=== PATIENT | female | born 1990 | race Hispanic/Latino ===

== ENCOUNTER 2016-12-01 11:44 | Inpatient (IN) | payer MEDICAID ==
[2016-12-01 11:45] VITALS: BMI 28.3
[2016-12-01] MEDS ORDERED: Albuterol-Ipratrop 3 mg / 0.5 (3 ml) UD INH STA ×3 (12:21→14:54)
--- NOTE | 2016-12-01 12:27 | C.PDOC ---
History Of Present Illness 25 yr olds female presents to the ER requesting detox. Patient reports she uses 100 bags of heroin daily through IV and snorting, also uses 12mg of Xanax. Patient reports history of seizures, is on gabapentin and asthma, states she is always wheezing and is on steroids. 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 Patient denies fever, chest pain, SOB, nausea, vomiting or abdominal pain. Patient reports history of Hepatitis C, did a 12 week course of Harvoni 1 year ago but has not had any follow up since then. Patient states she has been taking IV drugs since. Patient sugar level was found to be 151 and reports history of gestational diabetes. Time Seen by Provider: 12/01/16 11:54 Chief Complaint (Nursing): Substance Abuse History Per: Patient History/Exam Limitations: no limitations Onset/Duration Of Symptoms: Persistent Past Medical History Reviewed: Historical Data, Nursing Documentation, Vital Signs Vital Signs: Last Vital Signs Temp 98.1 F 12/01/16 11:50 Pulse 114 H 12/01/16 14:07 Resp 24 12/01/16 14:07 BP 114/70 12/01/16 14:07 Pulse Ox 91 L 12/01/16 15:48 - Medical History PMH: Anxiety, Asthma, Bipolar Disorder, Depression, Seizures (Pt. 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 Drowsy. ) Skin: Warm, Dry, No Rash Head: Atraumatic, Normacephalic Oral Mucosa: Moist Throat: Normal, No Erythema, No Exudate Neck: Normal, Normal ROM, Supple Chest: Symmetrical, No Tenderness Cardiovascular: Rhythm Regular, Other ((+) Tacy ) Respiratory: No Rales, Wheezing (Bilateral ) Gastrointestinal/Abdominal: Normal Exam, Soft, No Tenderness, No Guarding, No Rebound Extremity: Normal ROM, No Swelling Neurological/Psych: Oriented x3, Normal Speech, Normal Motor ED Course And Treatment - Laboratory Results Result Diagrams: 12/01/16 12:47 12/01/16 12:47 O2 Sat by Pulse Oximetry: 91 (RA ) Pulse Ox Interpretation: Normal - Other Rad CXR X-Ray: Viewed By Me, Read By Radiologist Interpretation: HISTORY: cough asthma o2 sat 91. COMPARISON: None available. TECHNIQUE: Chest PA and lateral. FINDINGS: Examination limited by habitus. LUNGS: No focal consolidation. 8 mm nodular density versus sclerotic focus projecting over the 3rd anterior rib/ 6th posterior rib on the right. Please note that chest x-ray has limited sensitivity for the detection of pulmonary masses. PLEURA: No significant pleural effusion identified. No definite pneumothorax . CARDIOVASCULAR: Heart size appears within normal limits. OSSEOUS STRUCTURES: Degenerative changes of the spine. VISUALIZED UPPER ABDOMEN: Unremarkable. OTHER FINDINGS: None. IMPRESSION: No focal consolidation, significant pleural effusion, or definite pneumothorax identified. 8 mm nodular density versus sclerotic focus projecting over the 3rd anterior rib/ 6th posterior rib on the right. Outpatient CT of the chest may be considered for further characterization if indicated. Medical Decision Making Medical Decision Making: PLAN: * * CXR * CBC * Alcohol Serum * Drug Screen * BETA * Urinalysis * Albuterol INH * Solumedrol IV 350 pm pt still wheezing in spite of nebs and sterpids, with low 02 sat. pt admitted to medicine; discussed with Dr Holliday. Disposition Discussed With .: Diaz Holliday Doctor Will See Patient In The: Hospital - Disposition Disposition: HOSPITALIZED Disposition Time: 15:46 Condition: SERIOUS Forms: [facility] (Slovenian) - Clinical Impression Clinical Impression: Asthma with acute exacerbation, Polysubstance (including opioids) dependence with physiol dependence - PA / GLOVE PRINTER / Resident Statement MD/DO has reviewed & agrees with the documentation as recorded. - Scribe Statement The provider has reviewed the documentation as recorded by the Scribe Debbie Saravia All medical record entries made by the Scribe were at my direction and personally dictated by me. I have reviewed the chart and agree that the record accurately reflects my personal performance of the history, physical exam, medical decision making, and the department course for this patient. I have also personally directed, reviewed, and agree with the discharge instructions and disposition. Decision To Admit - Pt Status Changed To: Hospital Disposition Of: Inpatient - Admit Certification Admit to Inpatient:: After my assessment, the patient will require hospitalization for at least two midnights. This is because of the severity of symptoms shown, intensity of services needed, and/or the medical risk in this patient being treated as an outpatient. - InPatient: Physician Admission Certification: I certify that this patient requires 2 or more midnights of care for the following reason:: asthma exacerbation - . Bed Request Type: Regular Patient Diagnosis: Asthma with acute exacerbation, Polysubstance (including opioids) dependence with physiol dependence
[2016-12-01] MEDS ORDERED: Albuterol-Ipratrop 3 mg / 0.5 (3 ml) UD ONE ×3 (12:52→15:23)
[2016-12-01 12:57] LABS: BASO # 0.1 K/uL (0.0-0.2); BASO % 0.5 % (0.0-2.0); EOS # 0.4 K/uL (0.0-0.7); EOS % 4.1 % (0.0-4.0); HEMOGLOBIN 13.1 g/dL (11.0-16.0); LYMPH # 3.7 K/uL (1.0-4.3); LYMPH % 38.9 % (20.0-40.0); MEAN CELL VOLUME 83.1 fL (81.0-99.0); MEAN CORPUSCULAR HEMOGLOBIN 26.5 pg (27.0-31.0); MEAN CORPUSCULAR HGB CONC 31.9 g/dL (33.0-37.0); MEAN PLATELET VOLUME 8.2 fL (7.2-11.7); MONO # 0.6 K/uL (0.0-0.8); MONO % 6.5 % (0.0-10.0); NEUT # 4.7 K/uL (1.8-7.0); NRBC % 0.1 % (0.0-2.0); RBC 4.93 Mil/uL (3.80-5.20); RED CELL DISTRIBUTION WIDTH 16.2 % (11.5-14.5); WHITE BLOOD COUNT 9.5 K/uL (4.8-10.8)
[2016-12-01 13:23] LABS: ALBUMIN 4.1 g/dL (3.5-5.0)
[2016-12-01 13:26] LABS: ALB/GLOB RATIO 1.1 (1.0-2.1); AST/SGOT 231 U/L (14-36); GFR AFRICAN-AMERICAN > 60; GFR NON-AFRICAN AMERICAN > 60
[2016-12-01 13:27] LABS: ALT/SGPT 196 U/L (9-52); BLOOD UREA NITROGEN 13 mg/dL (7-17); CALCIUM 8.8 mg/dl (8.6-10.4)
--- NOTE | 2016-12-01 14:24 | RAD ---
HISTORY: cough asthma o2 sat 91 COMPARISON: None available TECHNIQUE: Chest PA and lateral FINDINGS: Examination limited by habitus. LUNGS: No focal consolidation. 8 mm nodular density versus sclerotic focus projecting over the 3rd anterior rib/ 6th posterior rib on the right. Please note that chest x-ray has limited sensitivity for the detection of pulmonary masses. PLEURA: No significant pleural effusion identified. No definite pneumothorax . CARDIOVASCULAR: Heart size appears within normal limits. OSSEOUS STRUCTURES: Degenerative changes of the spine. VISUALIZED UPPER ABDOMEN: Unremarkable. OTHER FINDINGS: None. IMPRESSION: No focal consolidation, significant pleural effusion, or definite pneumothorax identified. 8 mm nodular density versus sclerotic focus projecting over the 3rd anterior rib/ 6th posterior rib on the right. Outpatient CT of the chest may be considered for further characterization if indicated.
[2016-12-01 14:37] LABS: HEPATITIS B SURFACE AG NEGATIVE (NEGATIVE)
[2016-12-01 14:42] LABS: HEPATITIS A IGM NEGATIVE (NEGATIVE); HEPATITIS B CORE AB NEGATIVE (NEGATIVE)
[2016-12-01] MEDS ORDERED: Sodium Chloride 0.9% 1,000 ML IV ONE (14:51)
[2016-12-01 16:05] LABS: HEPATITIS C ANTIBODY REACTIVE (NEGATIVE)
[2016-12-01] MEDS: guaiFENesin 600 mg ER Tab PO SCH (17:55)
[2016-12-01 19:09] VITALS: O2SAT 91
[2016-12-01] MEDS ORDERED: Fluticasone-Salmeterol 250-50mcg Diskus IH SCH (20:00)
[2016-12-01 22:24] LABS: SQUAMOUS EPITHIAL < 1 /hpf (0-5); URINE BILIRUBIN NEGATIVE (NEGATIVE); URINE BLOOD NEGATIVE (NEGATIVE); URINE CLARITY Clear (Clear); URINE COLOR Yellow (YELLOW); URINE GLUCOSE (UA) NORMAL (Normal); URINE LEUKOCYTE ESTERASE TRACE Leu/uL (Negative); URINE NITRATE NEGATIVE (NEGATIVE); URINE PROTEIN NEGATIVE (NEGATIVE); URINE UROBILINOGEN NORMAL mg/dL (0.2-1.0)
[2016-12-01 22:28] LABS: BARBITURATES, UR NEGATIVE (NEGATIVE); BENZODIAZEPINES, UR POSITIVE (NEGATIVE)
[2016-12-01 22:31] LABS: HCG,QUALITATIVE URINE NEGATIVE (NEGATIVE); OPIATES, UR POSITIVE (NEGATIVE); PHENCYCLIDINE, UR NEGATIVE (NEGATIVE)
[2016-12-01] MEDS: MethylPREDNISolone 40 mg Vial IV SCH (23:05)
[2016-12-02 00:41] VITALS: BP 145/71; PULSE 118; RESP 20; TEMP 97.9
[2016-12-02] MEDS: Albuterol 0.083% Inhal Sol (2.5 mg/3 mL) UD INH SCH ×3 (02:28→13:08)
--- NOTE | 2016-12-02 08:16 | CP.PCM.HP ---
History of Present Illness - History of Present Illness History of Present Illness: 25 yr olds female presents to the ER requesting detox. Patient reports she uses 100 bags of heroin daily through IV and snorting, also uses 12mg of Xanax. Patient reports history of seizures, is on gabapentin and asthma, states she is always wheezing and is on steroids. 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 Patient denies fever, chest pain, SOB, nausea, vomiting or abdominal pain. Patient reports history of Hepatitis C, did a 12 week course of Harvoni 1 year ago but has not had any follow up since then. Patient states she has been taking IV drugs since. Patient sugar level was found to be 151 and reports history of gestational diabetes. Past Patient History - Infectious Disease Hx of Infectious Diseases: None - Past Medical History & Family History Past Medical History?: Yes - Past Social History Smoking Status: Heavy Smoker > 10 Cigarettes Daily - CARDIAC Hx Hypertension: No - PULMONARY Hx Asthma: Yes - NEUROLOGICAL Hx Seizures: Yes (Pt. reports last seizure was 2 years ago.) - HEMATOLOGICAL/ONCOLOGICAL Hx Cancer: No Hx Human Immunodeficiency Virus (HIV): No - MUSCULOSKELETAL/RHEUMATOLOGICAL Hx Falls: No - GASTROINTESTINAL Hx Gastrointestinal Disorders: Yes Other/Comment: hep C - GENITOURINARY/GYNECOLOGICAL Hx Sexually Transmitted Disorders: No - PSYCHIATRIC Hx Anxiety: Yes Hx Bipolar Disorder: Yes Hx Depression: Yes Hx Substance Use: Yes - SURGICAL HISTORY Hx Surgeries: Yes Hx Dilation and Curettage: Yes - ANESTHESIA Hx Anesthesia: Yes Hx Anesthesia Reactions: No Meds Allergies/Adverse Reactions: Allergies Allergy/AdvReac Type Severity Reaction Status Date / Time Penicillins Allergy Severe ANAPHYLAXIS Verified 06/06/16 08:52 Results - Vital Signs Recent Vital Signs: Last Vital Signs Temp 97.9 F 12/01/16 23:21 Pulse 118 H 12/01/16 23:21 Resp 20 12/01/16 23:21 BP 145/71 12/01/16 23:21 Pulse Ox 91 L 12/01/16 23:21 - Labs Result Diagrams: 12/01/16 12:47 12/01/16 12:47 Labs: Laboratory Results - last 24 hr 12/01/16 12/01/16 22:10 22:10 Urine Color Yellow Urine Clarity Clear Urine pH 5.0 Ur Specific [place] 1.011 Urine Protein Negative Urine Glucose (UA) Normal Urine Ketones Negative Urine Blood Negative Urine Nitrate Negative Urine Bilirubin Negative Urine Urobilinogen Normal Ur Leukocyte Esterase Trace Urine WBC (Auto) 1 Urine RBC (Auto) < 1 Ur Squamous Epith Cells < 1 Urine HCG, Qual Negative Urine Opiates Screen Positive Urine Methadone Screen Negative Ur Barbiturates Screen Negative Ur Phencyclidine Scrn Negative Ur Amphetamines Screen Negative U Benzodiazepines Scrn Positive U Oth Cocaine Metabols Negative U Cannabinoids Screen Negative
[2016-12-02] MEDS: MethylPREDNISolone 40 mg Vial IV SCH (10:03)
[2016-12-02] MEDS: guaiFENesin 600 mg ER Tab PO SCH (10:06)
[2016-12-02] MEDS ORDERED: Multiple Vitamins Tab PO SCH (10:30)
--- NOTE | 2016-12-02 11:12 | CP.PCM.PN ---
Subjective - Date & Time of Evaluation Date of Evaluation: 12/02/16 Time of Evaluation: 19:00 - Subjective Subjective: COUGH WHEEZING, SHORT OF BREATH, NO NAUSEA, NO VOMITING, ANXIOUS AND INSOMNIAC, NO CHEST PAIN Objective - Vital Signs/Intake and Output Vital Signs (last 24 hours): Temp Pulse Resp BP Pulse Ox 97.9 F 118 H 20 145/71 91 L 12/01/16 23:21 12/01/16 23:21 12/01/16 23:21 12/01/16 23:21 12/01/16 23:21 - Medications Medications: Current Medications Albuterol Sulfate (Albuterol 0.083% Inhal [place] (2.5 Mg/3 Ml) Ud) 2.5 mg INH RQ6 [facility] Last Admin: 12/02/16 08:24 Dose: 2.5 mg Clonidine HCl (Catapres) 0.1 mg PO Q4H PRN PRN Reason: BP ABOVE 150/100; HR ABOVE 100 Folic Acid (Folic Acid) 1 mg PO DAILY [facility] Last Admin: 12/02/16 11:02 Dose: 1 mg Gabapentin (Neurontin) 400 mg PO TID [facility] Guaifenesin (Mucinex La) 600 mg PO BID [facility] Last Admin: 12/02/16 10:06 Dose: 600 mg Lorazepam (Ativan) 1 mg IVP Q4H PRN PRN Reason: Symptoms of alcohol withdrawl Lorazepam (Ativan) 2 mg PO Q4H [facility] PRN Reason: Taper Stop: 12/07/16 10:29 Last Admin: 12/02/16 11:02 Dose: 2 mg Methylprednisolone (Solu-Medrol) 40 mg IV Q12 [facility] Last Admin: 12/02/16 10:03 Dose: 40 mg Multivitamins (Hexavitamin) 1 tab PO DAILY [facility] Last Admin: 12/02/16 11:02 Dose: 1 tab Nicotine (Nicoderm Cq) 1 patch TD DAILY [facility] Last Admin: 12/01/16 22:03 Dose: 1 patch Prazosin HCl (Minipress) 1 mg PO HS [facility] Fluticasone/Salmeterol (Advair Diskus 250/50) 1 puff IH RBID [facility] Last Admin: 12/02/16 08:24 Dose: 1 puff Thiamine HCl (Vitamin B1 Tab) 100 mg PO DAILY [facility] Last Admin: 08/02/17 11:05 Dose: 100 mg Trazodone HCl (Desyrel) 100 mg PO HS PRN PRN Reason: Insomnia - Constitutional Appears: Non-toxic, Chronically Ill - Head Exam Head Exam: ATRAUMATIC, NORMAL INSPECTION, NORMOCEPHALIC - Eye Exam Eye Exam: EOMI, Normal appearance, PERRL Pupil Exam: NORMAL ACCOMODATION - ENT Exam ENT Exam: Mucous Membranes Moist, Normal Exam, Normal Oropharynx, TM's Normal Bilaterally - Neck Exam Neck Exam: Normal Inspection - Respiratory Exam Respiratory Exam: Decreased Breath Sounds, Rhonchi, Wheezes - Cardiovascular Exam Cardiovascular Exam: REGULAR RHYTHM, +S1, +S2 - GI/Abdominal Exam GI & Abdominal Exam: Normal Bowel Sounds - Rectal Exam Rectal Exam: NORMAL INSPECTION - Extremities Exam Extremities Exam: Full ROM - Neurological Exam Neurological Exam: Alert, Awake, CN II-XII Intact, Normal Gait, Oriented x3 - Psychiatric Exam Psychiatric exam: Anxious, Flat Affect - Skin Skin Exam: Intact Assessment and Plan (1) Asthma with acute exacerbation Status: Acute (2) Drug abuse Status: Acute (3) Polysubstance (including opioids) dependence with physiol dependence Status: Acute
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
--- NOTE | 2016-12-02 16:20 | CP.PCM.CON ---
History of Present Illness - History of Present Illness History of Present Illness: Reason for consultation: Asthma (acute exacerbation) HPI: Patient is a 25 year old female with past medical history of asthma, seizures, hepC, gestational DM, and substance abuse, admitted on 12/01/16 for heroin detox and acute asthma exacerbation. Patient has an extensive history of substance abuse with heroin, crack, xanax, and alcohol daily. Patient is also a smoker. She states she is "always wheezing" and takes steroids for asthma control at home. Patient arrived to the ED with 91% oxygen saturation with cough and bilateral wheezing. Patient was given 6 boluses of duoneb and 2 boluses of IV steroids 125mg. Patient had no improvement in symptoms 3-4 hours later with persistent wheezing and 91% O2 saturation. Patient is currently 91% on 3L NC. Patient complains of productive cough with clear phlegm, chills, diaphoresis, and back pain. Denies fever, chest pain, SOB, wheezing, abdominal pain, hemoptysis, N/V/D/C. 12/01/16 CXR: 8 mm nodular density vs sclerotic focus over 3rd anterior rib/6th posterior rib on right. Follow-up with outpatient CT 02/14/15 ECHO: LVEF 70%; mild tricuspid regurg Significant lab findings: Random glucose: 151; AST/ALT: 231/196; Alk phos: 148 UA negative; tox screen positive for opiates and BZD; HepC Ab (+) PMD: none Surgical hx: D&C for elective PMH: asthma, seizures, hepC (did 12 week trial of Harvoni with no follow-up), gestational DM, substance abuse Allergies: penicillin Home meds: Social: 20 pack year history of tobacco use; EtOH; significant substance abuse hx (heroin, crack, xanax daily) Family history: adopted (biological mother fro ovarian cancer; colon cancer, heroin abuse) Past Patient History - Infectious Disease Hx of Infectious Diseases: None - Past Medical History & Family History Past Medical History?: Yes - Past Social History Smoking Status: Heavy Smoker > 10 Cigarettes Daily - CARDIAC Hx Hypertension: No - PULMONARY Hx Asthma: Yes - NEUROLOGICAL Hx Seizures: Yes (Pt. reports last seizure was 2 years ago.) - HEMATOLOGICAL/ONCOLOGICAL Hx Cancer: No Hx Human Immunodeficiency Virus (HIV): No - MUSCULOSKELETAL/RHEUMATOLOGICAL Hx Falls: No - GASTROINTESTINAL Hx Gastrointestinal Disorders: Yes Other/Comment: hep C - GENITOURINARY/GYNECOLOGICAL Hx Sexually Transmitted Disorders: No - PSYCHIATRIC Hx Anxiety: Yes Hx Bipolar Disorder: Yes Hx Depression: Yes Hx Substance Use: Yes - SURGICAL HISTORY Hx Surgeries: Yes Hx Dilation and Curettage: Yes - ANESTHESIA Hx Anesthesia: Yes Hx Anesthesia Reactions: No Meds Allergies/Adverse Reactions: Allergies Allergy/AdvReac Type Severity Reaction Status Date / Time Penicillins Allergy Severe ANAPHYLAXIS Verified 06/06/16 08:52 - Medications Medications: Current Medications Albuterol Sulfate (Albuterol 0.083% Inhal [place] (2.5 Mg/3 Ml) Ud) 2.5 mg INH RQ6 [facility] Last Admin: 12/02/16 13:08 Dose: 2.5 mg Budesonide (Pulmicort Respules) 0.5 mg INH RQ12 [facility] Clonidine HCl (Catapres) 0.1 mg PO Q4H PRN PRN Reason: BP ABOVE 150/100; HR ABOVE 100 Folic Acid (Folic Acid) 1 mg PO DAILY [facility] Last Admin: 12/02/16 11:02 Dose: 1 mg Gabapentin (Neurontin) 400 mg PO TID [facility] Last Admin: 12/02/16 14:02 Dose: 400 mg Guaifenesin (Mucinex La) 600 mg PO BID [facility] Last Admin: 12/02/16 10:06 Dose: 600 mg Lorazepam (Ativan) 1 mg IVP Q4H PRN PRN Reason: Symptoms of alcohol withdrawl Lorazepam (Ativan) 2 mg PO Q4H [facility] PRN Reason: Taper Stop: 12/07/16 10:29 Last Admin: 12/02/16 14:01 Dose: 2 mg Methadone HCl (Methadone) 15 mg PO Q24H [facility] PRN Reason: Taper Stop: 12/07/16 08:59 Methylprednisolone (Solu-Medrol) 40 mg IV Q6 [facility] Montelukast Sodium (Singulair) 10 mg PO HS [facility] Multivitamins (Hexavitamin) 1 tab PO DAILY [facility] Last Admin: 12/02/16 11:02 Dose: 1 tab Nicotine (Nicoderm Cq) 1 patch TD DAILY [facility] Last Admin: 12/02/16 14:01 Dose: 1 patch Prazosin HCl (Minipress) 1 mg PO HS [facility] Thiamine HCl (Vitamin B1 Tab) 100 mg PO DAILY [facility] Last Admin: 12/02/16 11:05 Dose: 100 mg Trazodone HCl (Desyrel) 100 mg PO HS PRN PRN Reason: Insomnia Results - Vital Signs Recent Vital Signs: Last Vital Signs Temp 97.9 F 12/01/16 23:21 Pulse 118 H 12/02/16 13:09 Resp 20 12/01/16 23:21 BP 145/71 12/01/16 23:21 Pulse Ox 91 L 12/01/16 23:21 - Labs Result Diagrams: 12/01/16 12:47 12/01/16 12:47 Labs: Laboratory Results - last 24 hr 12/01/16 12/01/16 22:10 22:10 Urine Color Yellow Urine Clarity Clear Urine pH 5.0 Ur Specific [place] 1.011 Urine Protein Negative Urine Glucose (UA) Normal Urine Ketones Negative Urine Blood Negative Urine Nitrate Negative Urine Bilirubin Negative Urine Urobilinogen Normal Ur Leukocyte Esterase Trace Urine WBC (Auto) 1 Urine RBC (Auto) < 1 Ur Squamous Epith Cells < 1 Urine HCG, Qual Negative Urine Opiates Screen Positive Urine Methadone Screen Negative Ur Barbiturates Screen Negative Ur Phencyclidine Scrn Negative Ur Amphetamines Screen Negative U Benzodiazepines Scrn Positive U Oth Cocaine Metabols Negative U Cannabinoids Screen Negative Assessment & Plan (1) Asthma with acute exacerbation Status: Acute (2) Polysubstance (including opioids) dependence with physiol dependence Status: Acute
[2016-12-02] MEDS ORDERED: MethylPREDNISolone 40 mg Vial IV SCH (18:00)
[2016-12-02] MEDS ORDERED: Budesonide 0.5 mg/2 ml Inhal Susp UD INH SCH (20:00)
== END 2016-12-02 15:30 | disposition left against medical advice (07) | DRG 96 ==
LOC: C.ER 11:44 → C.5T 15:48
PROVIDERS: ADMIT Internal Medicine; ATTEND Internal Medicine
DX: J45.901 Unspecified asthma with (acute) exacerbation (principal); F11.23 Opioid dependence with withdrawal; F10.230 Alcohol dependence with withdrawal, uncomplicated; B19.20 Unspecified viral hepatitis C without hepatic coma; F60.3 Borderline personality disorder; F43.10 Post-traumatic stress disorder, unspecified; G40.909 Epilepsy, unspecified, not intractable, without status epilepticus; F17.210 Nicotine dependence, cigarettes, uncomplicated; Y90.0 Blood alcohol level of less than 20 mg/100 ml; F32.9 Major depressive disorder, single episode, unspecified; F41.9 Anxiety disorder, unspecified

== ENCOUNTER 2017-12-13 09:07 | Inpatient (IN) | payer MEDICAID ==
[2017-12-13 09:07] VITALS: BMI 28.3
[~2017-12-13 09:07] MED LIST: Vancomycin 1 gm/NS 200 ml 1 GM/200 ML BAG IVPB SCH
[2017-12-13] MEDS ORDERED: Lidocaine 2% MPF (5 ml) Inj ONE (10:17)
[2017-12-13] MEDS ORDERED: Vancomycin 1 GM 1 GM/250 ML BAG IVPB STA (11:32)
[2017-12-13 11:37] LABS: BASO # 0.1 K/uL (0.0-0.2); BASO % 0.7 % (0.0-2.0); EOS % 0.3 % (0.0-4.0); HEMOGLOBIN 12.5 g/dL (11.0-16.0); LYMPH # 2.1 K/uL (1.0-4.3); LYMPH % 16.3 % (20.0-40.0); MEAN CORPUSCULAR HEMOGLOBIN 26.3 pg (27.0-31.0); MEAN PLATELET VOLUME 8.4 fL (7.2-11.7); MONO # 0.9 K/uL (0.0-0.8); MONO % 6.6 % (0.0-10.0); NEUT % 76.1 % (50.0-75.0); RBC 4.75 Mil/uL (3.80-5.20); RED CELL DISTRIBUTION WIDTH 16.6 % (11.5-14.5); WHITE BLOOD COUNT 13.1 K/uL (4.8-10.8)
[2017-12-13 11:39] LABS: MEAN CELL VOLUME 79.8 fL (81.0-99.0)
[2017-12-13] MEDS ORDERED: Vancomycin 1 gm/NS 200 ml 1 GM/200 ML BAG IVPB STA (11:40)
[2017-12-13 12:06] LABS: ALB/GLOB RATIO 1.1 (1.0-2.1); ALBUMIN 4.7 g/dL (3.5-5.0); ALT/SGPT 52 U/L (9-52); AST/SGOT 25 U/L (14-36); BLOOD UREA NITROGEN 11 mg/dL (7-17); CALCIUM 9.7 mg/dl (8.6-10.4); GFR AFRICAN-AMERICAN > 60; GFR NON-AFRICAN AMERICAN > 60
[2017-12-13 12:29] LABS: BARBITURATES, UR NEGATIVE (NEGATIVE); PHENCYCLIDINE, UR NEGATIVE (NEGATIVE)
[2017-12-13 12:50] LABS: BENZODIAZEPINES, UR POSITIVE (NEGATIVE); OPIATES, UR POSITIVE (NEGATIVE)
--- NOTE | 2017-12-13 14:00 | C.PDOC ---
History Of Present Illness 26 year old female patient presents to the ER requesting detox for heroin. Patient reports she would have 50-60 bags of heroin by IV daily. Her last intake was this morning. 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 Patient is currently on her second course of PO abx, however, no change in abscess. Patient denies fever, chills and cough. Time Seen by Provider: 12/13/17 09:41 Chief Complaint (Nursing): Abnormal Skin Integrity History Per: Patient History/Exam Limitations: no limitations Onset/Duration Of Symptoms: Days Current Symptoms Are (Timing): Still Present Past Medical History Reviewed: Historical Data, Nursing Documentation, Vital Signs Vital Signs: Last Vital Signs Temp 98.2 F 12/13/17 16:00 Pulse 94 H 12/13/17 16:00 Resp 20 12/13/17 16:00 BP 122/81 12/13/17 16:00 Pulse Ox 97 12/13/17 16:00 - Medical History PMH: Anxiety, Asthma, Bipolar Disorder, Bronchitis, Depression, Seizures (Pt. reports last seizure was 2 years ago.) - Next Glass Procedures DETOXIFICATION SERVICES FOR SUBSTANCE ABUSE TREATMENT (12/08/15) GROUP GRADE TAMPER FOR SUBSTANCE ABUSE, MOTIVATIONAL ENHANCE (02/14/15) Family History: States: Unknown Family Hx - Social History Hx Tobacco Use: Yes (1 and half pack a day) Hx Alcohol Use: No Hx Substance Use: Yes - Immunization History Hx Tetanus Toxoid Vaccination: No Hx Influenza Vaccination: No Hx Pneumococcal Vaccination: No Review Of Systems Except As Marked, All Systems Reviewed And Found Negative. Constitutional: Negative for: Fever, Chills Respiratory: Negative for: Cough Skin: Positive for: Other (multiple abscess on body) Physical Exam - Physical Exam Appears: Well, Non-toxic, No Acute Distress Skin: Warm, Dry, Other (many track waterman on arms b/l; +multiple abscess; 5 cm diameter fluctant ucler on lateral of right shoulder) Head: Atraumatic, Normacephalic Eye(s): bilateral: Normal Inspection Ear(s): Bilateral: Normal Oral Mucosa: Moist Throat: Normal Neck: Normal ROM, Supple Chest: Symmetrical, Other (+healing ucler on left chest wall) Cardiovascular: Rhythm Regular Respiratory: Normal Breath Sounds, No Rales, No Rhonchi, No Wheezing Gastrointestinal/Abdominal: Soft, No Tenderness Extremity: Normal ROM (x4), Capillary Refill (<2 sec) Pulses: Left Radial: Normal, Right Radial: Normal Neurological/Psych: Oriented x3, Normal Speech, Normal Motor, Normal Sensation, Normal Reflexes Gait: Steady ED Course And Treatment - Laboratory Results Result Diagrams: 12/13/17 11:31 08 11:31 O2 Sat by Pulse Oximetry: 98 (RA) Pulse Ox Interpretation: Normal - Physician Consult Information Physician Contacted: Johanna Giraldo Outcome Of Conversation: request IV family and marriage counsellor - Incision & Drainage Of Abscess Anesthesia: Lidocaine 2% Procedure: Incised W/Scalpel Blade#: (11), Drained Pus, Cultures Obtained And Sent To Lab Medical Decision Making Medical Decision Making: Impression: request detox for heroin and multiple abscess on body. Plan: -- drug screen -- blood work -- Clindomycin IV fluids -- methadone -- tylenol -- vancomycin 200ml -- vancomycin 250 ml -- vancomycin IV fluids Incision and drainage abscess: numbed with 2% lidocaine and incision was done with #11 blade. Purulent and foul smelling drainage. Wound Cx obtained; patient refused packing. Physician contacted: Doctor Kristal Spencer who request IV family and marriage counsellor. administration vice president was consulted for surgical family and marriage counsellor. Reassess: Patient is resting comfortably. Patient is admitted for further treatment. Disposition - Disposition Disposition: HOME/ ROUTINE Disposition Time: 12:05 Condition: STABLE - Clinical Impression Clinical Impression: Abscess, Heroin abuse - Scribe Statement The provider has reviewed the documentation as recorded by the Fabricio Gamino Do Provider Attestation: All medical record entries made by the Fabricio were at my direction and personally dictated by me. I have reviewed the chart and agree that the record accurately reflects my personal performance of the history, physical exam, medical decision making, and the department course for this patient. I have also personally directed, reviewed, and agree with the discharge instructions and disposition.
[2017-12-13] MEDS: Clindamycin 600 MG in Sodium Chloride 0.9% 100 ML IV SCH ×2 (14:25→21:37)
--- NOTE | 2017-12-13 17:01 | CP.PCM.HP ---
History of Present Illness - History of Present Illness History of Present Illness: pt came in for detox heroin abuser but has abcess r shoulder neded surgical i and d Present on Admission - Present on Admission Any Indicators Present on Admission: No Review of Systems - Review of Systems Systems not reviewed;Unavailable: Acuity of Condition - Constitutional Constitutional: Fatigue, Headache - EENT Eyes: As Per HPI Ears: As Per HPI Nose/Mouth/Throat: As Per HPI - Breasts Breasts: As Per HPI - Cardiovascular Cardiovascular: As Per HPI - Gastrointestinal Gastrointestinal: As Per HPI - Genitourinary Genitourinary: As Per HPI - Reproductive: Female Reproductive:Female: As Per HPI - Menstruation Menstruation: As Per HPI - Musculoskeletal Musculoskeletal: As Per HPI - Integumentary Integumentary: As Per HPI - Neurological Neurological: Convulsions Additional comments: anexiety - Psychiatric Psychiatric: Anxiety, Depression - Endocrine Endocrine: As Per HPI - Hematologic/Lymphatic Hematologic: As Per HPI Past Patient History - Infectious Disease Hx of Infectious Diseases: None - Past Medical History & Family History Past Medical History?: Yes - Past Social History Smoking Status: Heavy Smoker > 10 Cigarettes Daily - CARDIAC Hx Hypertension: No - PULMONARY Hx Asthma: Yes Hx Bronchitis: Yes - NEUROLOGICAL Hx Seizures: Yes (Pt. reports last seizure was 2 years ago.) - HEMATOLOGICAL/ONCOLOGICAL Hx Human Immunodeficiency Virus (HIV): No - MUSCULOSKELETAL/RHEUMATOLOGICAL Hx Falls: No - GASTROINTESTINAL Hx Gastrointestinal Disorders: Yes Other/Comment: hep C - GENITOURINARY/GYNECOLOGICAL Hx Sexually Transmitted Disorders: No - PSYCHIATRIC Hx Anxiety: Yes Hx Bipolar Disorder: Yes Hx Depression: Yes Hx Substance Use: Yes - SURGICAL HISTORY Hx Surgeries: Yes Hx Dilation and Curettage: Yes Other/Comment: I&D - ANESTHESIA Hx Anesthesia: Yes Hx Anesthesia Reactions: No Hx Malignant Hyperthermia: No Meds Home Medications: Home Medication List Medication Instructions Recorded Confirmed Type Sulfamethoxazole/Trimethoprim 1 tab PO BID #20 tab 12/13/17 Rx [Bactrim DS 800 mg-160 mg] Allergies/Adverse Reactions: Allergies Allergy/AdvReac Type Severity Reaction Status Date / Time Penicillins Allergy Severe ANAPHYLAXIS Verified 12/13/17 09:27 Physical Exam - Constitutional Appears: In Acute Distress - Head Exam Head Exam: ATRAUMATIC - Eye Exam Eye Exam: Normal appearance Pupil Exam: NORMAL ACCOMODATION - ENT Exam ENT Exam: Mucous Membranes Moist - Neck Exam Neck exam: Positive for: Normal Inspection - Respiratory Exam Respiratory Exam: Clear to Auscultation Bilateral - Cardiovascular Exam Cardiovascular Exam: REGULAR RHYTHM - GI/Abdominal Exam GI & Abdominal Exam: Normal Bowel Sounds - Rectal Exam Rectal Exam: NORMAL INSPECTION - Exam Exam: NORMAL INSPECTION - Extremities Exam Extremities exam: Positive for: normal inspection Additional comments: shoulder abcess Results - Vital Signs Recent Vital Signs: Last Vital Signs Temp 983 F H 12/13/17 13:37 Pulse 115 H 12/13/17 13:37 Resp 18 12/13/17 13:37 BP 118/82 12/13/17 13:37 Pulse Ox 98 12/13/17 14:14 - Labs Result Diagrams: 12/13/17 11:31 12/13/17 11:31 Labs: Laboratory Results - last 24 hr 12/13/17 12/13/17 12/13/17 11:28 11:31 11:31 WBC 13.1 H RBC 4.75 Hgb 12.5 Hct 37.9 MCV 79.8 L D MCH 26.3 L MCHC 33.0 RDW 16.6 H Plt Count 307 MPV 8.4 Neut % (Auto) 76.1 H Lymph % (Auto) 16.3 L [place] % (Auto) 6.6 Eos % (Auto) 0.3 Baso % (Auto) 0.7 Neut # (Auto) 10.0 H Lymph # (Auto) 2.1 [place] # (Auto) 0.9 H Eos # (Auto) 0.0 Baso # (Auto) 0.1 Sodium 141 Potassium 4.0 Chloride 104 Carbon Dioxide 22 Anion Gap 19 BUN 11 Creatinine 0.6 L Est GFR ( Amer) > 60 Est GFR (Non-Af Amer) > 60 Random Glucose 118 H Calcium 9.7 Total Bilirubin 0.4 AST 25 ALT 52 D Alkaline Phosphatase 160 H Total Protein 8.9 H Albumin 4.7 Globulin 4.2 H Albumin/Globulin Ratio 1.1 Urine Opiates Screen Positive H Urine Methadone Screen Negative Ur Barbiturates Screen Negative Ur Phencyclidine Scrn Negative Ur Amphetamines Screen Negative U Benzodiazepines Scrn Positive U Oth Cocaine Metabols Negative U Cannabinoids Screen Negative Alcohol, Quantitative < 10 Assessment & Plan - Assessment and Plan (Free Text) Assessment: heroin abuse abcess shoulder seen by surgery Plan: antibiotics psych consult - Date & Time Date: 12/13/17 Time: 17:03
--- NOTE | 2017-12-13 17:13 | CP.PCM.CON ---
History of Present Illness - History of Present Illness History of Present Illness: Consult note for General Surgery, Dr. Conte CC: right shoulder abscess 26 year old female presents to the ED with PMHx of IVDA, asthma, and Hep. C with complaints of a right shoulder abscess that started 2 weeks ago. She states that she has been getting multiple abscesses for the past 3 weeks that have been moving all across her body. She denies injecting at the abscess sites. Patient was seen in the ER and right shoulder I&D was initiated, pt refused to have packing in place. General Surgery was consulted for abscess drainage. She complains of subjective fevers and chills but denies and chest pain, shortness of breath, abdominal pain, constipation, nausea or vomiting. She is with LMP being 3 years ago. PMHx: asthma, Hep. C, IVDA PSHx: D&C (patient does not remember when) Allergies: pennicillin- anaphylactic reaction Medicine: Xanax , Seroquel, Albuterol pump, benadryl OTC for sleep, Melatonin OTC for sleep, Nyquil OTC for sleep PFHx: mother- colon and ovarian cancer, PMD: Elli Castle (foster mother) SHx: 1.5 PPD for 11 years, social drinker: 1 drink a week, injects heroin and admits to abusing Xanax that is prescribed to her for sleep, lives with her friend Review of Systems - Review of Systems Review of Systems: 12 pt ROS reviewed, unremarkable, except as stated in HPI Past Patient History - Infectious Disease Hx of Infectious Diseases: None - Past Medical History & Family History Past Medical History?: Yes - Past Social History Smoking Status: Heavy Smoker > 10 Cigarettes Daily - CARDIAC Hx Hypertension: No - PULMONARY Hx Asthma: Yes Hx Bronchitis: Yes - NEUROLOGICAL Hx Seizures: Yes (Pt. reports last seizure was 2 years ago.) - HEMATOLOGICAL/ONCOLOGICAL Hx Human Immunodeficiency Virus (HIV): No - MUSCULOSKELETAL/RHEUMATOLOGICAL Hx Falls: No - GASTROINTESTINAL Hx Gastrointestinal Disorders: Yes Other/Comment: hep C - GENITOURINARY/GYNECOLOGICAL Hx Sexually Transmitted Disorders: No - PSYCHIATRIC Hx Anxiety: Yes Hx Bipolar Disorder: Yes Hx Depression: Yes Hx Substance Use: Yes - SURGICAL HISTORY Hx Surgeries: Yes Hx Dilation and Curettage: Yes Other/Comment: I&D - ANESTHESIA Hx Anesthesia: Yes Hx Anesthesia Reactions: No Hx Malignant Hyperthermia: No Meds Home Medications: Home Medication List Medication Instructions Recorded Confirmed Type Sulfamethoxazole/Trimethoprim 1 tab PO BID #20 tab 12/13/17 Rx [Bactrim DS 800 mg-160 mg] Allergies/Adverse Reactions: Allergies Allergy/AdvReac Type Severity Reaction Status Date / Time Penicillins Allergy Severe ANAPHYLAXIS Verified 12/13/17 09:27 - Medications Medications: Current Medications Alprazolam (Xanax) 1 mg PO DAILY [facility] Home Med (Ropinirole Hcl [Ropinirole Hcl]) 0.5 mg PO DAILY [facility] Clindamycin Phosphate 600 mg/ (Sodium Chloride) 104 mls @ 100 mls/hr IV Q8H DANIELLA PRN Reason: Protocol Last Admin: 12/13/17 14:25 Dose: 100 mls/hr Vancomycin/Sodium Chloride (Vancomycin 1 Gm/Ns 200 Ml) 1 gm in 200 mls @ 133.333 mls/hr IVPB Q12H DANIELLA PRN Reason: Protocol Quetiapine Fumarate (Seroquel) 200 mg PO HS DANIELLA Physical Exam - Constitutional Appears: Non-toxic, No Acute Distress - Head Exam Head Exam: ATRAUMATIC, NORMOCEPHALIC - Eye Exam Eye Exam: EOMI, Normal appearance - ENT Exam ENT Exam: Mucous Membranes Moist - Respiratory Exam Respiratory Exam: NORMAL BREATHING PATTERN. absent: Rales, Rhonchi, Wheezes - Cardiovascular Exam Cardiovascular Exam: Tachycardia, +S1, +S2 - GI/Abdominal Exam GI & Abdominal Exam: Soft - Extremities Exam Additional comments: extensive number of track waterman noted bilaterally upper extremities from hands all the way proximally to the deltoid areas, track waterman noted posterior to medial malleolus bilaterally, 5 cm bruise on the inner aspect of the inner left arm, 5 cm fluctuant abscess draining with green/yellow pus and erythematous base at the right deltoid area Results - Vital Signs Recent Vital Signs: Last Vital Signs Temp 983 F H 12/13/17 13:37 Pulse 115 H 12/13/17 13:37 Resp 18 12/13/17 13:37 BP 118/82 12/13/17 13:37 Pulse Ox 98 12/13/17 14:14 - Labs Result Diagrams: 12/13/17 11:31 12/13/17 11:31 Labs: Laboratory Results - last 24 hr 12/13/17 12/13/17 12/13/17 11:28 11:31 11:31 WBC 13.1 H RBC 4.75 Hgb 12.5 Hct 37.9 MCV 79.8 L D MCH 26.3 L MCHC 33.0 RDW 16.6 H Plt Count 307 MPV 8.4 Neut % (Auto) 76.1 H Lymph % (Auto) 16.3 L [place] % (Auto) 6.6 Eos % (Auto) 0.3 Baso % (Auto) 0.7 Neut # (Auto) 10.0 H Lymph # (Auto) 2.1 [place] # (Auto) 0.9 H Eos # (Auto) 0.0 Baso # (Auto) 0.1 Sodium 141 Potassium 4.0 Chloride 104 Carbon Dioxide 22 Anion Gap 19 BUN 11 Creatinine 0.6 L Est GFR ( Amer) > 60 Est GFR (Non-Af Amer) > 60 Random Glucose 118 H Calcium 9.7 Total Bilirubin 0.4 AST 25 ALT 52 D Alkaline Phosphatase 160 H Total Protein 8.9 H Albumin 4.7 Globulin 4.2 H Albumin/Globulin Ratio 1.1 Urine Opiates Screen Positive H Urine Methadone Screen Negative Ur Barbiturates Screen Negative Ur Phencyclidine Scrn Negative Ur Amphetamines Screen Negative U Benzodiazepines Scrn Positive U Oth Cocaine Metabols Negative U Cannabinoids Screen Negative Alcohol, Quantitative < 10 Assessment & Plan - Assessment and Plan (Free Text) Assessment: 26 year old female with a history of IVDA presents with right shoulder abscess Plan: I&D abx as recommended per ID monitor vitals f/u AM labs will remove packing tomorrow and reassess surgical wound Further recs per Dr. Dg Flynn PGY3 - Incision & Drainage Of Abscess Anesthesia: Lidocaine 1% Prep Used: Betadine Procedure: Incised W/Scalpel Blade#: (11), Drained Pus, Irrigated Cavity W/ Saline, Probed To Break Up Loculations, Packed W/Gauze
[2017-12-13 17:16] VITALS: RESP 20
--- NOTE | 2017-12-13 20:08 | CP.PCM.CON ---
History of Present Illness - History of Present Illness History of Present Illness: dictated Past Patient History - Infectious Disease Hx of Infectious Diseases: None - Past Medical History & Family History Past Medical History?: Yes - Past Social History Smoking Status: Heavy Smoker > 10 Cigarettes Daily - CARDIAC Hx Hypertension: No - PULMONARY Hx Asthma: Yes Hx Bronchitis: Yes - NEUROLOGICAL Hx Seizures: Yes (Pt. reports last seizure was 2 years ago.) - HEMATOLOGICAL/ONCOLOGICAL Hx Human Immunodeficiency Virus (HIV): No - MUSCULOSKELETAL/RHEUMATOLOGICAL Hx Falls: No - GASTROINTESTINAL Hx Gastrointestinal Disorders: Yes Other/Comment: hep C - GENITOURINARY/GYNECOLOGICAL Hx Sexually Transmitted Disorders: No - PSYCHIATRIC Hx Anxiety: Yes Hx Bipolar Disorder: Yes Hx Depression: Yes Hx Substance Use: Yes - SURGICAL HISTORY Hx Surgeries: Yes Hx Dilation and Curettage: Yes Other/Comment: I&D - ANESTHESIA Hx Anesthesia: Yes Hx Anesthesia Reactions: No Hx Malignant Hyperthermia: No Meds Home Medications: Home Medication List Medication Instructions Recorded Confirmed Type Sulfamethoxazole/Trimethoprim 1 tab PO BID #20 tab 12/13/17 Rx [Bactrim DS 800 mg-160 mg] Allergies/Adverse Reactions: Allergies Allergy/AdvReac Type Severity Reaction Status Date / Time Penicillins Allergy Severe ANAPHYLAXIS Verified 12/13/17 09:27 - Medications Medications: Current Medications Alprazolam (Xanax) 1 mg PO DAILY [facility] Last Admin: 12/13/17 18:59 Dose: 1 mg Home Med (Ropinirole Hcl [Ropinirole Hcl]) 0.5 mg PO DAILY [facility] Clindamycin Phosphate 600 mg/ (Sodium Chloride) 104 mls @ 100 mls/hr IV Q8H DANIELLA PRN Reason: Protocol Last Admin: 12/13/17 14:25 Dose: 100 mls/hr Vancomycin/Sodium Chloride (Vancomycin 1 Gm/Ns 200 Ml) 1 gm in 200 mls @ 133.333 mls/hr IVPB Q12H DANIELLA PRN Reason: Protocol Quetiapine Fumarate (Seroquel) 200 mg PO HS [facility] Results - Vital Signs Recent Vital Signs: Last Vital Signs Temp 98.2 F 12/13/17 16:00 Pulse 94 H 12/13/17 16:00 Resp 20 12/13/17 16:00 BP 122/81 12/13/17 16:00 Pulse Ox 98 12/13/17 18:44 - Labs Result Diagrams: 12/13/17 11:31 12/13/17 11:31 Labs: Laboratory Results - last 24 hr 12/13/17 12/13/17 12/13/17 11:28 11:31 11:31 WBC 13.1 H RBC 4.75 Hgb 12.5 Hct 37.9 MCV 79.8 L D MCH 26.3 L MCHC 33.0 RDW 16.6 H Plt Count 307 MPV 8.4 Neut % (Auto) 76.1 H Lymph % (Auto) 16.3 L [place] % (Auto) 6.6 Eos % (Auto) 0.3 Baso % (Auto) 0.7 Neut # (Auto) 10.0 H Lymph # (Auto) 2.1 [place] # (Auto) 0.9 H Eos # (Auto) 0.0 Baso # (Auto) 0.1 Sodium 141 Potassium 4.0 Chloride 104 Carbon Dioxide 22 Anion Gap 19 BUN 11 Creatinine 0.6 L Est GFR ( Amer) > 60 Est GFR (Non-Af Amer) > 60 Random Glucose 118 H Calcium 9.7 Total Bilirubin 0.4 AST 25 ALT 52 D Alkaline Phosphatase 160 H Total Protein 8.9 H Albumin 4.7 Globulin 4.2 H Albumin/Globulin Ratio 1.1 Urine Opiates Screen Positive H Urine Methadone Screen Negative Ur Barbiturates Screen Negative Ur Phencyclidine Scrn Negative Ur Amphetamines Screen Negative U Benzodiazepines Scrn Positive U Oth Cocaine Metabols Negative U Cannabinoids Screen Negative Alcohol, Quantitative < 10
[2017-12-13] MEDS: Vancomycin 1 gm/NS 200 ml 1 GM/200 ML BAG IVPB SCH (23:46)
[2017-12-14] MEDS: Clindamycin 600 MG in Sodium Chloride 0.9% 100 ML IV SCH ×3 (05:23→21:25)
[2017-12-14 07:17] LABS: BASO # 0.1 K/uL (0.0-0.2); BASO % 0.8 % (0.0-2.0); EOS # 0.1 K/uL (0.0-0.7); EOS % 1.8 % (0.0-4.0); HEMOGLOBIN 12.5 g/dL (11.0-16.0); LYMPH # 2.2 K/uL (1.0-4.3); LYMPH % 28.8 % (20.0-40.0); MEAN CELL VOLUME 79.6 fL (81.0-99.0); MEAN CORPUSCULAR HEMOGLOBIN 26.3 pg (27.0-31.0); MEAN PLATELET VOLUME 8.6 fL (7.2-11.7); MONO # 0.5 K/uL (0.0-0.8); MONO % 7.3 % (0.0-10.0); NEUT # 4.6 K/uL (1.8-7.0); NEUT % 61.3 % (50.0-75.0); NRBC % 0.1 % (0.0-2.0); RBC 4.77 Mil/uL (3.80-5.20); RED CELL DISTRIBUTION WIDTH 16.3 % (11.5-14.5); WHITE BLOOD COUNT 7.5 K/uL (4.8-10.8)
[2017-12-14 07:59] LABS: ALB/GLOB RATIO 1.2 (1.0-2.1); ALBUMIN 4.4 g/dL (3.5-5.0); ALT/SGPT 36 U/L (9-52); AST/SGOT 27 U/L (14-36); BLOOD UREA NITROGEN 14 mg/dL (7-17); CALCIUM 9.3 mg/dl (8.6-10.4); GFR AFRICAN-AMERICAN > 60; GFR NON-AFRICAN AMERICAN > 60
--- NOTE | 2017-12-14 08:07 | CON ---
Copied To: Geeta Adhikari MD Attending MD: Geeta Adhikari MD DATE: 12/13/2017 INFECTIOUS DISEASE CONSULTATION REQUESTED BY: Johanna Giraldo MD HISTORY OF PRESENT ILLNESS: This patient is a 26-year-old female. She has a history of IV drug abuse. She injects daily. She also says she drinks and she smokes and has a history of asthma and hepatitis C. She did not want to talk much, so most of the history is taken from the chart. She wanted methadone. She states she has multiple abscesses over past three weeks. She says she has been having it all over, right now was in the right upper arm, right shoulder with I and D. Also had and some rash and cellulitis present. She also had a dressing there. Surgery had been requested to do an I and D. She has been having fever and chills. She has been on oral antibiotic, Bactrim, but that has not been helping her. She complained of subjective fever and chills. Denied any chest pain. No shortness of breath. No abdominal pain. No nausea. No vomiting. No diarrhea. She says she has a 5-year-old daughter. PAST MEDICAL HISTORY: Significant for asthma, hepatitis C, IV drug abuse. SURGICAL HISTORY: D and C, long back. She said she had an IUD and some problems happened from that. ALLERGIES: SHE IS ALLERGIC TO PENICILLIN WHICH CAUSES ANAPHYLACTIC SHOCK AND HIVES. MEDICATIONS: She has been on Xanax, Seroquel, albuterol inhaler, Benadryl. She takes melatonin and NyQuil sometimes for sleep. FAMILY HISTORY: Mother had colon and ovarian cancer, but she told me her mother is a doctor. I do not know she has a foster mother, may be that one is a doctor for internal medicine, that is what she told me. SOCIAL HISTORY: She smokes one and a half packs per day for 11 years. Social drinker, drinks every week. Injects heroin and admits to abusing Xanax and is prescribed for her sleep and lives with her friend. REVIEW OF SYSTEMS: Past medical history is negative for any infectious disease. She denies ever having a heart infection, but she says my mother thinks that I have abscesses in the heart and since, she is IV drug abuser. I will get an echo done to rule out endocarditis. Social history is significant for smoking. Cardiac history is negative for hypertension. Pulmonary history is significant for asthma and bronchitis. Neurological, history of seizures. HIV negative. History of fall is negative. She has GI symptoms of hepatitis C. She has no sexually transmitted diseases but in the past admission, she one time had Chlamydia, may be that time she was and they evaluated. Psych history of anxiety, bipolar depression, and present substance abuse with heroin injections. Surgical history of surgery, D and C, and she says with IUD, I understood IUD removal. Anesthesia, she has gotten before. Home meds, she was taking Bactrim and she has taken 10 days' tablets. She is allergic to penicillin. Medications as above. Now, here we started her on vancomycin. She is on Seroquel, clindamycin and Xanax 1 mg p.o. daily. PHYSICAL EXAMINATION: VITAL SIGNS: I find her temperature when I saw was 98.2, pulse of 94. She had a heart rate initially 115, blood pressure is 122/81, respirations are 20. HEENT: Head is atraumatic, normocephalic. Pupils are reacting to light. Tongue is dry at this time. NECK: Supple. JVP is flat. LUNGS: Clear. No crackles or rales present. HEART: S1, S2 are regular. ABDOMEN: Soft, nontender. No guarding, no rigidity present. EXTREMITIES: Right arm, upper shoulder has an area with cellulitis and abscess formation. LABORATORY DATA: On chest where she did not let me to see. She was kind of, did not want to be bothered. Sodium is 141, potassium 4, chlorides of 104, CO2 is 22, anion gap is 19, BUN is 11, creatinine 0.6, and random glucose is 118. Micro shows wound culture is pending at this time. She also had she had any imaging done. opiates are positive. Alcohol is less than 10. White count is 13.1, hemoglobin 12.5, hematocrit 37.9, platelet count is 307. Chemistry shows sodium 141, potassium 4, chlorides of 104, CO2 is 22, BUN is 11, anion gap is 19, creatinine 0.6. Alk phos is 160, total protein is 8.9, globulin is 4.2, so her alk phos is increased. ASSESSMENT AND PLAN: test was ordered. Blood culture is ordered actually, has been collected. Wound culture has been ordered. She is on vancomycin and clindamycin at this time and has a history of drug abuse and abscess and cellulitis of the right shoulder. She also has a chest with some abscess, but she did not let me to see. We will review tomorrow and will continue with present treatment. We will order a vancomycin peak and trough. We will follow the surgeon, incision and drainage. We will follow with surgeon as she needs an incision and drainage. An echocardiogram also is ordered. Geeta Adhikari MD
--- NOTE | 2017-12-14 09:28 | CP.PCM.PN ---
Subjective - Date & Time of Evaluation Date of Evaluation: 12/14/17 Time of Evaluation: 07:00 - Subjective Subjective: general surgery progress note for Dr. Conte patient seen and examined this morning at bedside. She continues to complain of pain in her right shoulder but endorses that it is improving. She otherwise denies n/v/f/c. dressing and iodoform packing changed this morning at bedside without difficulty. Patient tolerated well. Objective - Vital Signs/Intake and Output Vital Signs (last 24 hours): Temp Pulse Resp BP Pulse Ox 98.4 F 85 20 125/82 95 12/14/17 00:00 12/14/17 00:00 12/14/17 00:00 12/14/17 00:00 12/14/17 00:00 Intake and Output: 12/14/17 12/14/17 06:59 18:59 Intake Total 840 Balance 840 - Medications Medications: Current Medications Alprazolam (Xanax) 1 mg PO DAILY [facility] Last Admin: 12/13/17 18:59 Dose: 1 mg Home Med (Ropinirole Hcl [Ropinirole Hcl]) 0.5 mg PO DAILY [facility] Clindamycin Phosphate 600 mg/ (Sodium Chloride) 104 mls @ 100 mls/hr IV Q8H [facility]ANIELLA PRN Reason: Protocol Last Admin: 12/14/17 05:23 Dose: 100 mls/hr Vancomycin/Sodium Chloride (Vancomycin 1 Gm/Ns 200 Ml) 1 gm in 200 mls @ 133.333 mls/hr IVPB Q12H [facility] PRN Reason: Protocol Last Admin: 12/13/17 23:46 Dose: 133.333 mls/hr Quetiapine Fumarate (Seroquel) 200 mg PO [facility] Last Admin: 12/13/17 21:38 Dose: 200 mg - Labs Labs: 12/14/17 06:58 12/14/17 06:58 - Constitutional Appears: Well, Non-toxic, No Acute Distress - Head Exam Head Exam: ATRAUMATIC, NORMOCEPHALIC - ENT Exam ENT Exam: Mucous Membranes Moist - Respiratory Exam Respiratory Exam: NORMAL BREATHING PATTERN - Cardiovascular Exam Cardiovascular Exam: +S1, +S2 - GI/Abdominal Exam GI & Abdominal Exam: Soft. absent: Tenderness - Extremities Exam Extremities Exam: absent: Pedal Edema Additional comments: right shoulder abscess site s/p I&D yesterday; erythema and induration improving , new iodoform packing placed, no foul smell - Neurological Exam Neurological Exam: Alert, Awake, Oriented x3 - Psychiatric Exam Psychiatric exam: Normal Affect, Normal Mood - Skin Skin Exam: Dry, Normal Color, Warm Additional comments: incision Assessment and Plan - Assessment and Plan (Free Text) Assessment: 26 yr old female s/p I&D yesterday of right shoulder abcsess, packed with iodoform Plan: - continue abx per ID team - wound cultures pending - discussed connection between abscesses and IV drug use and need for sobriety/ cessation - iodoform packing and dressing changed today - d/w Dr. Conte, all further recs per him Estefany Tavera, PGY 1
--- NOTE | 2017-12-14 09:58 | PCM.PSYCH ---
Initial Psychiatric Evaluation - Initial Psychiatric Evaluation Type of Admission: Voluntary Legal Status: Capacity Chief Complaint (in patient's own words): "I need methadone, I'm withdrawing" History of Present Illness and Precipitating Events: Pt is seen, chart reviewed, case discussed with staff. Consult was requested for her substance abuse. Pt is a 26 y/o female who is single and living with a friend; pt has a 5 y/o daughter who is currently under the temporary custody of pts mother. Pt is here for an abscess but is also requesting detox from heroin; pt has hx of heroin abuse for the past 6.5 years and injects 50 bags/day (she claims); pt last used heroin on 12/13 @ 7 am. Pt is prescribed xanax for anxiety but also has a hx of xanax abuse and takes 4- 5 of the 2 mg tablets daily. Pt smokes 1.5 packs of cigarettes/day; pt denies alcohol, cocaine, and marijuana. Pt is currently prescribed Seroquel for Bipolar disorder and another medication for restless legs which she cannot recall. Pt denies A/H, V/H. Pt describes and displays significant withdrawal symptoms; pt requests methadone , which she got some last night. Past medical hx includes asthma, bronchitis, seizures. Past psychiatric hx includes anxiety, depression, and Bipolar disorder. Family hx unknown. Current Medications: Active Medications Generic Name Dose Route Start Last Admin Trade Name Freq PRN Reason Stop Dose Admin Alprazolam 1 mg 12/13/17 17:00 12/13/17 18:59 Xanax PO 1 mg DAILY DANIELLA Administration Home Med 1 tab 12/14/17 12:00 Patient's Own Medication PO DAILY [facility]IE[facility]A Clindamycin Phosphate 600 mg/ 104 mls @ 100 mls/hr 12/13/17 13:45 12/14/17 05 :23 Sodium Chloride IV 100 mls/hr Q8H DANIELLA Administration Protocol Vancomycin/Sodium Chloride 1 gm in 200 mls @ 133.333 mls/hr 12/14/17 00:30 23:46 Vancomycin 1 Gm/Ns 200 Ml IVPB 133.333 mls/hr Q12H DANIELLA Administration Protocol Methadone HCl 0 mg 12/14/17 10:00 Methadone PO 12/18/17 09:59 Q24H DANIELLA Taper Nicotine 1 patch 12/14/17 10:00 Nicoderm Cq TD DAILY DANIELLA Quetiapine Fumarate 200 mg 12/13/17 22:00 12/13/17 21:38 Seroquel PO 200 mg HS DANIELLA Administration Past Psychiatric History - Past Psychiatric History Previous Treatment History: Intensive Outpatient Pertinent Medical Hx (Current Medical&Sleep Prob, Allergies): Allergies Allergy/AdvReac Type Severity Reaction Status Date / Time Penicillins Allergy Severe ANAPHYLAXIS Verified 12/13/17 09:27 ALPRAZolam [Xanax] 1 mg PO DAILY 12/13/17 Doxycycline Hyclate 100 mg PO BID 12/13/17 Quetiapine Fumarate [Seroquel] 200 mg PO HS 12/13/17 Ropinirole HCl 0.5 mg PO DAILY 12/13/17 Sulfamethoxazole/Trimethoprim [Bactrim DS 800 mg-160 mg] 1 tab PO BID #20 tab Review of Systems - Neurological Neurological: UNREMARKABLE - Psychiatric Psychiatric: Abnormal Sleep Pattern, Anhedonia, Anxiety, Depression, Difficulty Concentrating, Irritability, Panic Attacks. absent: Hallucinations, Homicidal Ideation, Paranoia, Suicidal Ideation Mental Status Examination - Personal Presentation Personal Presentation: Looks older than stated age - Affect Affect: Broad - Motor Activity Motor Activity: Calm - Reliability in Providing Information Reliability in Providing Information: Good - Speech Speech: Organized - Mood Mood: Depressed, Anxious - Formal Thought Process Formal Thought Process: No Impairment - Cognitive Functions Orientation: Person, Place, Situation, Time Sensorium: Alert Attention/Concentration: Attentive Estimate of Intelligence: Average Judgement: Intact, as evidence by: Insight regarding need for hospitalization Memory: Recent intact, as evidence by: Ability to recall events of the day, Remote intact, as evidenced by: Abilit to recall sig. 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 Attend groups and activities Supportive therapy and psychoeducation [place] for abstinence CBT for relapse prevention Encourage MAT Refer to rehab or IOP, and self-help groups Smoking cessation with NE Nicotine patch if needed 33 min
--- NOTE | 2017-12-14 11:19 | CP.PCM.PN ---
Subjective - Date & Time of Evaluation Date of Evaluation: 12/14/17 Time of Evaluation: 11:16 - Subjective Subjective: c/o ocasional wheesing cough black mucous Objective - Vital Signs/Intake and Output Vital Signs (last 24 hours): Temp Pulse Resp BP Pulse Ox 98.8 F 87 20 117/78 95 12/14/17 08:00 12/14/17 08:00 12/14/17 08:00 12/14/17 08:00 12/14/17 08:00 Intake and Output: 12/14/17 12/14/17 06:59 18:59 Intake Total 840 Balance 840 - Medications Medications: Current Medications Chlordiazepoxide (Librium) 25 mg PO Q6 [facility]LLA PRN Reason: Taper Stop: 12/18/17 11:59 Gabapentin (Neurontin) 300 mg PO TID [facility] Last Admin: 12/14/17 10:41 Dose: 300 mg Home Med (Patient's Own Medication) 1 tab PO DAILY [facility] Clindamycin Phosphate 600 mg/ (Sodium Chloride) 104 mls @ 100 mls/hr IV Q8H [facility]A PRN Reason: Protocol Last Admin: 12/14/17 05:23 Dose: 100 mls/hr Vancomycin/Sodium Chloride (Vancomycin 1 Gm/Ns 200 Ml) 1 gm in 200 mls @ 133.333 mls/hr IVPB Q12H [facility] PRN Reason: Protocol Last Admin: 12/13/17 23:46 Dose: 133.333 mls/hr Methadone HCl (Methadone) 15 mg PO Q24H [facility] PRN Reason: Taper Stop: 12/18/17 09:59 Last Admin: 12/14/17 10:41 Dose: 15 mg Nicotine (Nicoderm Cq) 1 patch TD DAILY [facility] Quetiapine Fumarate (Seroquel) 200 mg PO HS [facility] Last Admin: 12/13/17 21:38 Dose: 200 mg - Labs Labs: 12/14/17 06:58 12/14/17 06:58 - Constitutional Appears: Non-toxic - Head Exam Head Exam: ATRAUMATIC - Eye Exam Eye Exam: Normal appearance - ENT Exam ENT Exam: Mucous Membranes Moist - Neck Exam Neck Exam: Full ROM - Respiratory Exam Respiratory Exam: Decreased Breath Sounds - Cardiovascular Exam Cardiovascular Exam: REGULAR RHYTHM - GI/Abdominal Exam GI & Abdominal Exam: Normal Bowel Sounds - Exam Exam: NORMAL INSPECTION - Extremities Exam Extremities Exam: Normal Inspection - Neurological Exam Neurological Exam: Alert, Awake, Normal Gait, Oriented x3 - Psychiatric Exam Psychiatric exam: Normal Affect, Normal Mood - Skin Skin Exam: Normal Color Assessment and Plan - Assessment and Plan (Free Text) Assessment: cough restless leg syndrome wheesing s/p open and drainge absces r shoulder Plan: cont as per orders
[2017-12-14] MEDS: ROPINIROLE 0.5 MG PO SCH (12:33)
[2017-12-14] MEDS: Vancomycin 1 gm/NS 200 ml 1 GM/200 ML BAG IVPB SCH (13:30)
--- NOTE | 2017-12-14 14:07 | RAD ---
Date of service: 12/14/2017 HISTORY: coughing black mucous COMPARISON: No prior. TECHNIQUE: Chest PA and lateral FINDINGS: LUNGS: No active pulmonary disease. PLEURA: No significant pleural effusion identified. No pneumothorax apparent. CARDIOVASCULAR: Normal. OSSEOUS STRUCTURES: No significant abnormalities. VISUALIZED UPPER ABDOMEN: Normal. OTHER FINDINGS: None. IMPRESSION: No active disease.
--- NOTE | 2017-12-14 16:18 | RAD ---
Date of service: 12/14/2017 HISTORY: PICC Insertion COMPARISON: December 14, 2017. Time of the most recent examination: 11:43. FINDINGS: LUNGS: No active pulmonary disease. PLEURA: No significant pleural effusion identified, no pneumothorax apparent. CARDIOVASCULAR: PICC line in satisfactory position the tip is in the SVC approximately 7 cm from the cavoatrial junction. OSSEOUS STRUCTURES: No significant abnormalities. VISUALIZED UPPER ABDOMEN: Normal. OTHER FINDINGS: None. IMPRESSION: Satisfactory position of recently placed PICC line. No adverse findings/ no pneumothorax demonstrated. No active pulmonary disease.
[2017-12-15] MEDS: Clindamycin 600 MG in Sodium Chloride 0.9% 100 ML IV SCH ×3 (05:01→21:39)
[2017-12-15] MEDS: ROPINIROLE 0.5 MG PO SCH (09:20)
[2017-12-15] MEDS ORDERED: Aluminum Hydroxide/Magnesium Hydroxide Susp (30 mL) PO ONE (10:00)
--- NOTE | 2017-12-15 11:29 | CP.PCM.PN ---
Subjective - Date & Time of Evaluation Date of Evaluation: 12/15/17 Time of Evaluation: 11:26 - Subjective Subjective: pt feels weeke no apetite the abcess paacked less celulitis around Objective - Vital Signs/Intake and Output Vital Signs (last 24 hours): Temp Pulse Resp BP Pulse Ox 98.1 F 96 H 20 139/87 96 12/15/17 08:00 12/15/17 08:00 12/15/17 08:00 12/15/17 08:00 12/15/17 08:00 Intake and Output: 12/15/17 12/15/17 06:59 18:59 Intake Total 710 Balance 710 - Medications Medications: Current Medications Chlordiazepoxide (Librium) 25 mg PO Q6 [facility]ANIELLA PRN Reason: Taper Stop: 12/18/17 11:59 Last Admin: 12/15/17 06:37 Dose: 25 mg Gabapentin (Neurontin) 300 mg PO TID [facility] Last Admin: 12/15/17 09:20 Dose: 300 mg Home Med (Patient's Own Medication) 1 tab PO DAILY [facility] Last Admin: 12/15/17 09:20 Dose: 1 tab Clindamycin Phosphate 600 mg/ (Sodium Chloride) 104 mls @ 100 mls/hr IV Q8H [facility]IELLA PRN Reason: Protocol Last Admin: 12/15/17 05:01 Dose: 100 mls/hr Vancomycin HCl 1,250 mg/ (Sodium Chloride) 250 mls @ 166.6 mls/hr IVPB Q12H [facility] PRN Reason: Protocol Methadone HCl (Methadone) 10 mg PO Q24H [facility]ANIELLA PRN Reason: Taper Stop: 12/18/17 09:59 Last Admin: 12/15/17 09:59 Dose: 10 mg Nicotine (Nicoderm Cq) 1 patch TD DAILY [facility] Last Admin: 12/15/17 09:20 Dose: 1 patch Quetiapine Fumarate (Seroquel) 200 mg PO HS [facility] Last Admin: 12/14/17 21:26 Dose: 200 mg - Labs Labs: 12/14/17 06:58 12/14/17 06:58 - Constitutional Appears: Non-toxic - Head Exam Head Exam: NORMAL INSPECTION - Eye Exam Eye Exam: Normal appearance Pupil Exam: NORMAL ACCOMODATION - ENT Exam ENT Exam: Normal Exam - Respiratory Exam Respiratory Exam: Clear to Ausculation Bilateral - Cardiovascular Exam Cardiovascular Exam: REGULAR RHYTHM - GI/Abdominal Exam GI & Abdominal Exam: Normal Bowel Sounds - Extremities Exam Extremities Exam: Full ROM Additional comments: l arm abcess s/p drainage and packed - Back Exam Back Exam: NORMAL INSPECTION - Neurological Exam Neurological Exam: Alert, Normal Gait, Oriented x3 - Psychiatric Exam Psychiatric exam: Normal Affect - Skin Skin Exam: Normal Color Assessment and Plan - Assessment and Plan (Free Text) Assessment: paulino martinez heroin abuse Plan: cont as per orders
--- NOTE | 2017-12-15 11:48 | CARD ---
APPROVED REPORT Date of service: 12/14/2017 EXAM: Two-dimensional and M-mode echocardiogram with Doppler and color Doppler. Other Information Quality : GoodRhythm : INDICATION Infection:Rule out subacute bacterial endocarditis 2D DIMENSIONS IVSd0.8 (0.7-1.1cm)LVDd4.1 (3.9-5.9cm) PWd0.8 (0.7-1.1cm)LVDs2.8 (2.5-4.0cm) FS (%) 30.7 %LVEF (%)58.7 (>50%) M-Mode DIMENSIONS Left Atrium (MM)3.55 (2.5-4.0cm)IVSd0.80 (0.7-1.1cm) Aortic Root3.13 (2.2-3.7cm)LVDd4.58 (4.0-5.6cm) Aortic Cusp Exc.2.33 (1.5-2.0cm)PWd0.80 (0.7-1.1cm) FS (%) 29 %LVDs3.25 (2.0-3.8cm) LVEF (%)56 (>50%) Mitral Valve MV E Rmyemllv00.0cm/sMV A Dwwuoiug61.6cm/sE/A ratio1.0 TDI E/Lateral E'0.0E/Medial E'0.0 LEFT VENTRICLE The left ventricle is normal size. There is normal left ventricular wall thickness. The left ventricular function is normal. The left ventricular ejection fraction is within the normal range. No regional wall motion abnormalities noted. The left ventricular diastolic function is normal. No left ventricle thrombus noted on this study. There is no ventricular septal defect visualized. There is no left ventricular aneurysm. There is no mass noted in the left ventricle. RIGHT VENTRICLE The right ventricle is normal size. There is normal right ventricular wall thickness. The right ventricular systolic function is normal. ATRIA The left atrium size is normal. The right atrium size is normal. The interatrial septum is intact with no evidence for an atrial septal defect. AORTIC VALVE The aortic valve is normal in structure and function. No aortic regurgitation is present. There is no aortic valvular stenosis. There is no aortic valvular vegetation. MITRAL VALVE The mitral valve is normal in structure and function. There is no evidence of mitral valve prolapse. There is no mitral valve stenosis. There is no mitral valve regurgitation noted. TRICUSPID VALVE The tricuspid valve is normal in structure and function. There is no tricuspid valve regurgitation noted. There is no tricuspid valve prolapse or vegetation. There is no tricuspid valve stenosis. PULMONIC VALVE The pulmonary valve is normal in structure and function. There is no pulmonic valvular regurgitation. There is no pulmonic valvular stenosis. GREAT VESSELS The aortic root is normal in size. The ascending aorta is normal in size. The pulmonary artery is normal. The IVC is normal in size and collapses >50% with inspiration. PERICARDIAL EFFUSION The pericardium appears normal. There is no pleural effusion. <Conclusion> The left ventricular function is normal. The left ventricular ejection fraction is within the normal range. No regional wall motion abnormalities noted. There is no aortic valvular vegetation. There is no tricuspid valve prolapse or vegetation.
--- NOTE | 2017-12-15 11:57 | PCM.PYCHPN ---
Psychiatric Progress Note - Psychiatric Progress Note Patient seen today, length of contact: 17 min Patient Chief Complaint: "I am not well" Problems Identified/Issues Discussed: The pt is seen, chart reviewed, case discussed with staff. The pt is compliant with medications and reports no side-effects. Symptoms are improving but needs more time to stabilize. Still having withdrawal sxs - extra dose of methadone added Atarax 50 added for insomnia Support given, psycho-education provided. After care discussed. Medication Change: Yes (DETOX CHANGES DAILY) Medical Record Reviewed: Yes Mental Status Examination - Cognitive Function Orientation: Person, Place, Situation, Time Memory: Impaired Attention: Poor Concentration: Poor Association: Loose (SLIGHTLY) Fund of Knowledge: WNL - Mood Mood: Depressed, Anxious - Affect Affect: Broad - Speech Speech: Appropriate - Formal Thought Process Formal Thought Process: No Impairment - Suicidal Ideation Suicidal Ideation: No - Homicidal Ideation Homicidal Ideation: No Goal/Treatment Plan - Goal/Treatment Plan Need for Continued Stay: Discharge may exacerbated symptoms, Severe functional impairment Progress Toward Problem(s) and Goals/Treatment Plan: Taper with methadone and librium Gabapentin for augmentation and anxiety Continue seroquel 200 mg hs, may increase the dose As needed medications All risks, benefits and alternatives of the meds discussed, and the pt agreed and understood. Attend groups and activities Supportive therapy and psychoeducation [place] for abstinence CBT for relapse prevention Encourage MAT Refer to rehab or IOP, and self-help groups Smoking cessation with [place] Nicotine patch if needed
--- NOTE | 2017-12-15 16:48 | CP.PCM.PN ---
Subjective - Date & Time of Evaluation Date of Evaluation: 12/15/17 Time of Evaluation: 11:15 - Subjective Subjective: General Surgery Note for Dr. Conte Patient was seen and examined at bedside today in no acute distress. Nurse reports no overnight events. Patient states improving pain in the right shoulder. Denies n/v, f/c, c/d. Packing removed, dressings changed at bedside without difficulty. Patient tolerating well. Objective - Vital Signs/Intake and Output Vital Signs (last 24 hours): Temp Pulse Resp BP Pulse Ox 98.1 F 96 H 20 139/87 96 12/15/17 08:00 12/15/17 08:00 12/15/17 08:00 12/15/17 08:00 12/15/17 08:00 Intake and Output: 12/15/17 12/15/17 06:59 18:59 Intake Total 1290 Balance 1290 - Medications Medications: Current Medications Dicyclomine HCl (Bentyl) 10 mg PO Q6H PRN PRN Reason: gastric cramp Last Admin: 12/15/17 15:25 Dose: 10 mg Gabapentin (Neurontin) 400 mg PO TID [facility] Last Admin: 12/15/17 13:37 Dose: 400 mg Home Med (Patient's Own Medication) 1 tab PO DAILY [facility] Last Admin: 12/15/17 09:20 Dose: 1 tab Hydroxyzine HCl (Atarax) 25 mg PO Q6H PRN PRN Reason: Anxiety Hydroxyzine HCl (Atarax) 50 mg PO HS [facility] Clindamycin Phosphate 600 mg/ (Sodium Chloride) 104 mls @ 100 mls/hr IV Q8H DANIELLA PRN Reason: Protocol Last Admin: 12/15/17 13:19 Dose: 100 mls/hr Vancomycin HCl 1,250 mg/ (Sodium Chloride) 250 mls @ 166.6 mls/hr IVPB Q12H DANIELLA PRN Reason: Protocol Lorazepam (Ativan) 2 mg PO Q6H DANIELLA PRN Reason: Taper Stop: 12/19/17 13:59 Last Admin: 12/15/17 14:29 Dose: 2 mg Methadone HCl (Methadone) 10 mg PO Q24H DANIELLA PRN Reason: Taper Stop: 12/18/17 09:59 Last Admin: 12/15/17 09:59 Dose: 10 mg Methadone HCl (Methadone) 5 mg PO QPM DANIELLA Stop: 08/17/18 18:01 Nicotine (Nicoderm Cq) 1 patch TD DAILY [facility] Last Admin: 12/15/17 09:20 Dose: 1 patch Quetiapine Fumarate (Seroquel) 200 mg PO HS [facility] Last Admin: 12/14/17 21:26 Dose: 200 mg - Labs Labs: 12/14/17 06:58 12/14/17 06:58 - Constitutional Appears: Non-toxic, No Acute Distress - Head Exam Head Exam: ATRAUMATIC, NORMOCEPHALIC - Eye Exam Eye Exam: EOMI, Normal appearance - ENT Exam ENT Exam: Mucous Membranes Moist, Normal Exam - Respiratory Exam Respiratory Exam: NORMAL BREATHING PATTERN. absent: Rales, Stridor - Cardiovascular Exam Cardiovascular Exam: +S1, +S2 - GI/Abdominal Exam GI & Abdominal Exam: Soft, Normal Bowel Sounds. absent: Tenderness - Extremities Exam Extremities Exam: Full ROM. absent: Joint Swelling, Tenderness - Neurological Exam Neurological Exam: Alert, Awake, Oriented x3 - Psychiatric Exam Psychiatric exam: Normal Affect, Normal Mood - Skin Additional comments: I&D site redressed, c/d/i no redness, tenderness to palpation in the area Assessment and Plan - Assessment and Plan (Free Text) Assessment: 26yoF Hx IVDU with right upper arm abscess s/p bedside I&D POD2 Plan: - local wound care, packing removed - educated on illicit drug use cessation, not only for abscess formation, but also possible endocarditis - wound is no longer purulent, healing well - signing off, please reconsult as necessary - d/w Dr. Dg Roman PGY1
--- NOTE | 2017-12-15 21:30 | CP.PCM.PN ---
Subjective - Date & Time of Evaluation Date of Evaluation: 12/15/17 Time of Evaluation: 18:30 - Subjective Subjective: dictated Objective - Vital Signs/Intake and Output Vital Signs (last 24 hours): Temp Pulse Resp BP Pulse Ox 98.3 F 94 H 20 137/87 97 12/15/17 16:00 12/15/17 16:00 12/15/17 16:00 12/15/17 16:00 12/15/17 16:00 Intake and Output: 12/15/17 12/16/17 18:59 06:59 Intake Total 1290 Balance 1290 - Medications Medications: Current Medications Dicyclomine HCl (Bentyl) 10 mg PO Q6H PRN PRN Reason: gastric cramp Last Admin: 12/15/17 15:25 Dose: 10 mg Gabapentin (Neurontin) 400 mg PO TID [facility] Last Admin: 12/15/17 17:54 Dose: 400 mg Home Med (Patient's Own Medication) 1 tab PO DAILY [facility] Last Admin: 12/15/17 09:20 Dose: 1 tab Hydroxyzine HCl (Atarax) 25 mg PO Q6H PRN PRN Reason: Anxiety Hydroxyzine HCl (Atarax) 50 mg PO HS [facility] Clindamycin Phosphate 600 mg/ (Sodium Chloride) 104 mls @ 100 mls/hr IV Q8H DANIELLA PRN Reason: Protocol Last Admin: 12/15/17 13:19 Dose: 100 mls/hr Vancomycin HCl 1,250 mg/ (Sodium Chloride) 250 mls @ 166.6 mls/hr IVPB Q12H DANIELLA PRN Reason: Protocol Last Admin: 12/15/17 17:37 Dose: 166.6 mls/hr Lorazepam (Ativan) 2 mg PO Q6H DANIELLA PRN Reason: Taper Stop: 12/19/17 13:59 Last Admin: 12/15/17 19:57 Dose: 2 mg Methadone HCl (Methadone) 10 mg PO Q24H DANIELLA PRN Reason: Taper Stop: 12/18/17 09:59 Last Admin: 12/15/17 09:59 Dose: 10 mg Methadone HCl (Methadone) 5 mg PO QPM DANIELLA Stop: 12/17/17 18:01 Last Admin: 12/15/17 17:54 Dose: 5 mg Nicotine (Nicoderm Cq) 1 patch TD DAILY [facility] Last Admin: 12/15/17 09:20 Dose: 1 patch Quetiapine Fumarate (Seroquel) 200 mg PO HS [facility] Last Admin: 12/14/17 21:26 Dose: 200 mg - Labs Labs: 12/14/17 06:58 12/14/17 06:58
[2017-12-16] MEDS ORDERED: DiphenhydrAMINE 50 mg/ml Inj IVP STA (00:50)
--- NOTE | 2017-12-16 03:18 | PN ---
Copied To: Geeta Adhikari MD Attending MD: Geeta Adhikari MD DATE: 12/15/2017 SUBJECTIVE: Rachel Castle was seen today. She was still complaining of pain, and I told her that she should be better, but she does have a deep wound, and they have taken of the packing. She also says that she needs to recuperate a lot because she is also getting detox treatment here, and she does not want to go early as she may revert to her drug intake if she is sent back early, and she needs to have this wound healed. I think we need to continue antibiotics IV for now and also look into her detox situation. PHYSICAL EXAMINATION: VITAL SIGNS: T-max is 98.3, pulse 94, blood pressure 137/87, respirations are 20. HEENT: Head is atraumatic. NECK: Supple. LUNGS: Clear. HEART: S1 and S2 are regular. ABDOMEN: Soft, nontender. No guarding, no rigidity present. SKIN: Right arm, the wound is deep, but there is cellulitis around. It is improving. EXTREMITIES: Have no edema. She was talking wisely that she would give away drugs, but only time will tell. She had an echo done which was unremarkable. ASSESSMENT AND PLAN: So, my impression is that she is an IV drug abuser, came in with an abscess in the right upper arm and had a wound; however, did not grow anything on 12/13/2017. She is on vancomycin and clindamycin right now. We will keep both going. She is also on methadone which is probably helping her to improve. I would continue the same treatment for now. Her vancomycin peak was low, and I have increased the dose before. She was already on Bactrim before coming here, that is why probably the cultures did not grow anything. Geeta Adhikari MD
[2017-12-16] MEDS: Clindamycin 600 MG in Sodium Chloride 0.9% 100 ML IV SCH ×2 (04:50→14:23)
[2017-12-16] MEDS: ROPINIROLE 0.5 MG PO SCH (10:11)
--- NOTE | 2017-12-16 13:42 | PCM.PYCHPN ---
Psychiatric Progress Note - Psychiatric Progress Note Patient seen today, length of contact: 18 min Patient Chief Complaint: "I am very bad, anxious, not sleeping , withdrawing' Problems Identified/Issues Discussed: The pt is seen, chart reviewed, case discussed with staff. She complains of everything even though she doesn't look that bad and asks for numerous meds and even change of her ativan to IV Risks discussed Seroquel increased Methadone taper will be extended one day No need for IV detox (same efficacy and IV has more resp. depression risk) Support and psychoed given Med-seeking a lot Medication Change: Yes (DETOX CHANGES DAILY) Medical Record Reviewed: Yes Mental Status Examination - Cognitive Function Orientation: Person, Place, Situation, Time Memory: Impaired Attention: Poor Concentration: Poor Association: Loose (SLIGHTLY) Fund of Knowledge: WNL - Mood Mood: Depressed, Anxious - Affect Affect: Broad - Speech Speech: Appropriate - Formal Thought Process Formal Thought Process: No Impairment - Suicidal Ideation Suicidal Ideation: No - Homicidal Ideation Homicidal Ideation: No Goal/Treatment Plan - Goal/Treatment Plan Need for Continued Stay: Discharge may exacerbated symptoms, Severe functional impairment Progress Toward Problem(s) and Goals/Treatment Plan: Taper with methadone and librium Gabapentin for augmentation and anxiety Continue seroquel 200 mg hs, may increase the dose As needed medications All risks, benefits and alternatives of the meds discussed, and the pt agreed and understood. Attend groups and activities Supportive therapy and psychoeducation CO for abstinence CBT for relapse prevention Encourage MAT Refer to rehab or IOP, and self-help groups Smoking cessation with CO Nicotine patch if needed
[2017-12-16] MEDS: DiphenhydrAMINE 50 mg/ml Inj IVP PRN ×2 (15:46→21:51)
--- NOTE | 2017-12-16 17:52 | CP.PCM.PN ---
Subjective - Date & Time of Evaluation Date of Evaluation: 12/16/17 Time of Evaluation: 17:50 - Subjective Subjective: feels aquilino sam removed the pack Objective - Vital Signs/Intake and Output Vital Signs (last 24 hours): Temp Pulse Resp BP Pulse Ox 98.3 F 92 H 20 154/98 H 96 12/16/17 16:00 12/16/17 16:00 12/16/17 16:00 12/16/17 16:00 12/16/17 16:00 Intake and Output: 12/16/17 12/16/17 06:59 18:59 Intake Total 1130 580 Balance 1130 580 - Medications Medications: Current Medications Clonidine HCl (Catapres) 0.1 mg PO BID [facility] Last Admin: 12/16/17 17:37 Dose: 0.1 mg Dicyclomine HCl (Bentyl) 10 mg PO Q6H PRN PRN Reason: gastric cramp Last Admin: 12/16/17 06:58 Dose: 10 mg Diphenhydramine HCl (Benadryl) 25 mg IVP BID PRN PRN Reason: Anxiety Last Admin: 12/16/17 15:46 Dose: 25 mg Gabapentin (Neurontin) 400 mg PO TID [facility] Last Admin: 12/16/17 17:37 Dose: 400 mg Home Med (Patient's Own Medication) 1 tab PO DAILY [facility] Last Admin: 12/16/17 10:11 Dose: 1 tab Clindamycin Phosphate 600 mg/ (Sodium Chloride) 104 mls @ 100 mls/hr IV Q8H [facility] PRN Reason: Protocol Last Admin: 12/16/17 14:23 Dose: 100 mls/hr Vancomycin HCl 1,250 mg/ (Sodium Chloride) 250 mls @ 166.6 mls/hr IVPB Q12H [facility] PRN Reason: Protocol Last Admin: 12/16/17 16:37 Dose: 166.6 mls/hr Lorazepam (Ativan) 2 mg PO Q8H [facility] PRN Reason: Taper Stop: 12/19/17 13:59 Last Admin: 12/16/17 14:23 Dose: 2 mg Methadone HCl (Methadone) 5 mg PO QPM [facility] Stop: 12/17/17 18:01 Last Admin: 12/16/17 17:37 Dose: 5 mg Methadone HCl (Methadone) 5 mg PO Q24H [facility] PRN Reason: Taper Stop: 08/18/18 10:14 Last Admin: 12/16/17 10:09 Dose: 5 mg Nicotine (Nicoderm Cq) 1 patch TD DAILY [facility] Last Admin: 12/16/17 10:11 Dose: 1 patch Quetiapine Fumarate (Seroquel) 100 mg PO DAILY [facility] Last Admin: 12/16/17 12:39 Dose: 100 mg Quetiapine Fumarate (Seroquel) 300 mg PO HS [facility] - Labs Labs: 12/14/17 06:58 12/14/17 06:58 - Constitutional Appears: Non-toxic - Head Exam Head Exam: NORMAL INSPECTION - Eye Exam Eye Exam: Normal appearance Pupil Exam: NORMAL ACCOMODATION - ENT Exam ENT Exam: Mucous Membranes Moist - Neck Exam Neck Exam: Full ROM - Respiratory Exam Respiratory Exam: Clear to Ausculation Bilateral - Cardiovascular Exam Cardiovascular Exam: REGULAR RHYTHM - GI/Abdominal Exam GI & Abdominal Exam: Normal Bowel Sounds - Rectal Exam Rectal Exam: NORMAL INSPECTION - Exam Exam: NORMAL INSPECTION - Extremities Exam Extremities Exam: Full ROM - Back Exam Back Exam: NORMAL INSPECTION - Neurological Exam Neurological Exam: Oriented x3 - Psychiatric Exam Psychiatric exam: Normal Mood - Skin Skin Exam: Normal Color Assessment and Plan - Assessment and Plan (Free Text) Assessment: abcess r arm s/p inscision and drainage still wound popen heroin abuse detox Plan: cont as per orders
--- NOTE | 2017-12-16 21:31 | CP.PCM.PN ---
Subjective - Date & Time of Evaluation Date of Evaluation: 12/16/17 Time of Evaluation: 17:25 - Subjective Subjective: dictated Objective - Vital Signs/Intake and Output Vital Signs (last 24 hours): Temp Pulse Resp BP Pulse Ox 98.3 F 92 H 20 154/98 H 96 12/16/17 16:00 12/16/17 16:00 12/16/17 16:00 12/16/17 16:00 12/16/17 16:00 Intake and Output: 12/16/17 12/17/17 18:59 06:59 Intake Total 580 Balance 580 - Medications Medications: Current Medications Clonidine HCl (Catapres) 0.1 mg PO BID [facility] Last Admin: 12/16/17 17:37 Dose: 0.1 mg Dicyclomine HCl (Bentyl) 10 mg PO Q6H PRN PRN Reason: gastric cramp Last Admin: 12/16/17 06:58 Dose: 10 mg Diphenhydramine HCl (Benadryl) 25 mg IVP BID PRN PRN Reason: Anxiety Last Admin: 12/16/17 15:46 Dose: 25 mg Gabapentin (Neurontin) 400 mg PO TID [facility] Last Admin: 12/16/17 17:37 Dose: 400 mg Home Med (Patient's Own Medication) 1 tab PO DAILY [facility] Last Admin: 12/16/17 10:11 Dose: 1 tab Vancomycin HCl 1,250 mg/ (Sodium Chloride) 250 mls @ 166.6 mls/hr IVPB Q12H [facility] PRN Reason: Protocol Last Admin: 12/16/17 16:37 Dose: 166.6 mls/hr Lorazepam (Ativan) 2 mg PO Q8H [facility] PRN Reason: Taper Stop: 12/19/17 13:59 Last Admin: 12/16/17 21:11 Dose: 2 mg Methadone HCl (Methadone) 5 mg PO QPM [facility] Stop: 12/17/17 18:01 Last Admin: 12/16/17 17:37 Dose: 5 mg Methadone HCl (Methadone) 5 mg PO Q24H [facility] PRN Reason: Taper Stop: 12/18/17 10:14 Last Admin: 12/16/17 10:09 Dose: 5 mg Nicotine (Nicoderm Cq) 1 patch TD DAILY [facility] Last Admin: 12/16/17 10:11 Dose: 1 patch Quetiapine Fumarate (Seroquel) 100 mg PO DAILY [facility] Last Admin: 12/16/17 12:39 Dose: 100 mg Quetiapine Fumarate (Seroquel) 300 mg PO [facility] Last Admin: 12/16/17 21:11 Dose: 300 mg - Labs Labs: 12/14/17 06:58 12/14/17 06:58
--- NOTE | 2017-12-17 02:46 | PN ---
Copied To: Geeta Adhikari MD Attending MD: Geeta Adhikari MD DATE: 12/16/2017 SUBJECTIVE: She was complaining of abdominal pain. She has been on clindamycin and vancomycin. Her wound is lot better but is still deep. She is also getting medications for her detox. ASSESSMENT AND PLAN: At this time since she is having abdominal symptoms, I told her I will discontinue the clindamycin and will follow her on vancomycin. We will continue with vancomycin at this time. As she is an intravenous drug abuser, came in with an abscess of the right upper extremity and will be following. Geeta Adhikari MD
[2017-12-17] MEDS: ROPINIROLE 0.5 MG PO SCH (09:30)
[2017-12-17] MEDS: DiphenhydrAMINE 50 mg/ml Inj IVP PRN ×2 (11:49→17:06)
--- NOTE | 2017-12-17 11:52 | CP.PCM.PN ---
Subjective - Date & Time of Evaluation Date of Evaluation: 12/17/17 Time of Evaluation: 11:49 - Subjective Subjective: feels beter wound is ozzing yeloish discharge Objective - Vital Signs/Intake and Output Vital Signs (last 24 hours): Temp Pulse Resp BP Pulse Ox 98 F 90 20 136/83 95 12/17/17 07:28 12/17/17 07:28 12/17/17 07:28 12/17/17 07:28 12/17/17 07:28 Intake and Output: 12/17/17 12/17/17 06:59 18:59 Intake Total 650 450 Balance 650 450 - Medications Medications: Current Medications Clonidine HCl (Catapres) 0.1 mg PO BID [facility] Last Admin: 12/17/17 09:30 Dose: 0.1 mg Dicyclomine HCl (Bentyl) 10 mg PO Q6H PRN PRN Reason: gastric cramp Last Admin: 12/16/17 06:58 Dose: 10 mg Diphenhydramine HCl (Benadryl) 25 mg IVP BID PRN PRN Reason: Anxiety Last Admin: 12/16/17 21:51 Dose: 25 mg Gabapentin (Neurontin) 400 mg PO TID [facility] Last Admin: 12/17/17 09:30 Dose: 400 mg Home Med (Patient's Own Medication) 1 tab PO DAILY [facility] Last Admin: 12/17/17 09:30 Dose: 1 tab Vancomycin HCl 1,250 mg/ (Sodium Chloride) 250 mls @ 166.6 mls/hr IVPB Q12H [facility] PRN Reason: Protocol Last Admin: 12/17/17 05:10 Dose: 166.6 mls/hr Lorazepam (Ativan) 2 mg PO Q8H [facility] PRN Reason: Taper Stop: 12/19/17 13:59 Last Admin: 12/17/17 05:10 Dose: 2 mg Methadone HCl (Methadone) 5 mg PO QPM [facility] Stop: 12/17/17 18:01 Last Admin: 12/16/17 17:37 Dose: 5 mg Methadone HCl (Methadone) 5 mg PO Q24H [facility] PRN Reason: Taper Stop: 12/18/17 10:14 Last Admin: 12/17/17 10:19 Dose: 5 mg Nicotine (Nicoderm Cq) 1 patch TD DAILY [facility] Last Admin: 08/17/18 09:30 Dose: 1 patch Quetiapine Fumarate (Seroquel) 100 mg PO DAILY [facility] Last Admin: 12/17/17 09:31 Dose: 100 mg Quetiapine Fumarate (Seroquel) 300 mg PO [facility] Last Admin: 12/16/17 21:11 Dose: 300 mg - Labs Labs: 12/14/17 06:58 12/14/17 06:58 - Constitutional Appears: Non-toxic - Head Exam Head Exam: NORMAL INSPECTION - Eye Exam Eye Exam: Normal appearance Pupil Exam: NORMAL ACCOMODATION - ENT Exam ENT Exam: Normal Exam - Respiratory Exam Respiratory Exam: Clear to Ausculation Bilateral - Cardiovascular Exam Cardiovascular Exam: REGULAR RHYTHM - GI/Abdominal Exam GI & Abdominal Exam: Normal Bowel Sounds - Extremities Exam Extremities Exam: Normal Inspection - Back Exam Back Exam: NORMAL INSPECTION - Neurological Exam Neurological Exam: Oriented x3 - Psychiatric Exam Psychiatric exam: Normal Affect - Skin Skin Exam: Normal Color Assessment and Plan - Assessment and Plan (Free Text) Assessment: abcess r arm s/p inscion and drainage still need iv antibiotic and wound car s/ p heroin abuse on detox Plan: cont as per orders
[2017-12-18] MEDS: DiphenhydrAMINE 50 mg/ml Inj IVP PRN ×3 (00:16→17:14)
[2017-12-18] MEDS: ROPINIROLE 0.5 MG PO SCH (10:20)
--- NOTE | 2017-12-18 14:54 | CP.PCM.PN ---
Subjective - Date & Time of Evaluation Date of Evaluation: 12/18/17 Time of Evaluation: 14:51 - Subjective Subjective: feels beter wound open geting smaller mor cleam today Objective - Vital Signs/Intake and Output Vital Signs (last 24 hours): Temp Pulse Resp BP Pulse Ox 98.6 F 76 20 106/68 97 12/17/17 23:50 12/17/17 23:50 12/17/17 23:50 12/17/17 23:50 12/17/17 23:50 Intake and Output: 12/18/17 12/18/17 06:59 18:59 Intake Total 750 650 Balance 750 650 - Medications Medications: Current Medications Clonidine HCl (Catapres) 0.1 mg PO BID [facility] Last Admin: 12/18/17 10:20 Dose: 0.1 mg Dicyclomine HCl (Bentyl) 10 mg PO Q6H PRN PRN Reason: gastric cramp Last Admin: 12/17/17 18:05 Dose: 10 mg Diphenhydramine HCl (Benadryl) 25 mg IVP BID PRN PRN Reason: Anxiety Last Admin: 12/18/17 00:16 Dose: 25 mg Gabapentin (Neurontin) 400 mg PO TID [facility] Last Admin: 12/18/17 10:20 Dose: 400 mg Home Med (Patient's Own Medication) 1 tab PO DAILY [facility] Last Admin: 12/18/17 10:20 Dose: 1 tab Vancomycin HCl 1,250 mg/ (Sodium Chloride) 250 mls @ 166.6 mls/hr IVPB Q12H [facility] PRN Reason: Protocol Last Admin: 12/18/17 05:00 Dose: 166.6 mls/hr Lorazepam (Ativan) 2 mg PO BID [facility] Stop: 12/19/17 10:01 Nicotine (Nicoderm Cq) 1 patch TD DAILY [facility] Last Admin: 12/18/17 10:21 Dose: 1 patch Quetiapine Fumarate (Seroquel) 100 mg PO DAILY [facility] Last Admin: 12/18/17 10:20 Dose: 100 mg Quetiapine Fumarate (Seroquel) 300 mg PO HS [facility] Last Admin: 12/17/17 21:18 Dose: 300 mg - Labs Labs: 12/14/17 06:58 12/14/17 06:58 - Constitutional Appears: Non-toxic - Head Exam Head Exam: NORMAL INSPECTION - Eye Exam Eye Exam: Normal appearance Pupil Exam: NORMAL ACCOMODATION - ENT Exam ENT Exam: Mucous Membranes Moist - Neck Exam Neck Exam: Full ROM - Respiratory Exam Respiratory Exam: Clear to Ausculation Bilateral - Cardiovascular Exam Cardiovascular Exam: REGULAR RHYTHM - GI/Abdominal Exam GI & Abdominal Exam: Normal Bowel Sounds - Rectal Exam Rectal Exam: NORMAL INSPECTION - Exam Exam: Uretheral Discharge - Extremities Exam Extremities Exam: Normal Capillary Refill - Back Exam Back Exam: NORMAL INSPECTION - Neurological Exam Neurological Exam: Normal Gait - Psychiatric Exam Psychiatric exam: Normal Affect - Skin Skin Exam: Normal Color Assessment and Plan - Assessment and Plan (Free Text) Assessment: s/p incision drainage abcess arm improving s/p heroin abuse Plan: cont as per order may discharge in am
--- NOTE | 2017-12-18 19:36 | CP.PCM.PN ---
Subjective - Date & Time of Evaluation Date of Evaluation: 12/18/17 Time of Evaluation: 17:00 - Subjective Subjective: dictated Objective - Vital Signs/Intake and Output Vital Signs (last 24 hours): Temp Pulse Resp BP Pulse Ox 97 F L 78 20 102/69 98 12/18/17 16:20 12/18/17 16:20 12/18/17 16:20 12/18/17 16:20 12/18/17 16:20 Intake and Output: 12/18/17 12/19/17 18:59 06:59 Intake Total 1050 Balance 1050 - Medications Medications: Current Medications Clonidine HCl (Catapres) 0.1 mg PO BID [facility] Last Admin: 12/18/17 17:48 Dose: Not Given Dicyclomine HCl (Bentyl) 10 mg PO Q6H PRN PRN Reason: gastric cramp Last Admin: 12/17/17 18:05 Dose: 10 mg Diphenhydramine HCl (Benadryl) 25 mg IVP BID PRN PRN Reason: Anxiety Last Admin: 12/18/17 17:14 Dose: 25 mg Gabapentin (Neurontin) 400 mg PO TID [facility] Last Admin: 12/18/17 17:46 Dose: 400 mg Home Med (Patient's Own Medication) 1 tab PO DAILY [facility] Last Admin: 12/18/17 10:20 Dose: 1 tab Vancomycin HCl 1,250 mg/ (Sodium Chloride) 250 mls @ 166.6 mls/hr IVPB Q12H [facility] PRN Reason: Protocol Last Admin: 12/18/17 16:44 Dose: 166.6 mls/hr Lorazepam (Ativan) 2 mg PO BID [facility] Stop: 12/19/17 10:01 Last Admin: 12/18/17 17:46 Dose: 2 mg Nicotine (Nicoderm Cq) 1 patch TD DAILY [facility] Last Admin: 12/18/17 10:21 Dose: 1 patch Quetiapine Fumarate (Seroquel) 100 mg PO DAILY [facility] Last Admin: 12/18/17 10:20 Dose: 100 mg Quetiapine Fumarate (Seroquel) 300 mg PO HS [facility] Last Admin: 12/17/17 21:18 Dose: 300 mg - Labs Labs: 12/14/17 06:58 12/14/17 06:58
--- NOTE | 2017-12-18 19:41 | CP.PCM.PN ---
Subjective - Date & Time of Evaluation Date of Evaluation: 12/18/17 Time of Evaluation: 18:00 - Subjective Subjective: dictated Objective - Vital Signs/Intake and Output Vital Signs (last 24 hours): Temp Pulse Resp BP Pulse Ox 97 F L 78 20 102/69 98 12/18/17 16:20 12/18/17 16:20 12/18/17 16:20 12/18/17 16:20 12/18/17 16:20 Intake and Output: 12/18/17 12/19/17 18:59 06:59 Intake Total 1050 Balance 1050 - Medications Medications: Current Medications Clonidine HCl (Catapres) 0.1 mg PO BID [facility] Last Admin: 12/18/17 17:48 Dose: Not Given Dicyclomine HCl (Bentyl) 10 mg PO Q6H PRN PRN Reason: gastric cramp Last Admin: 12/17/17 18:05 Dose: 10 mg Diphenhydramine HCl (Benadryl) 25 mg IVP BID PRN PRN Reason: Anxiety Last Admin: 12/18/17 17:14 Dose: 25 mg Gabapentin (Neurontin) 400 mg PO TID [facility] Last Admin: 12/18/17 17:46 Dose: 400 mg Home Med (Patient's Own Medication) 1 tab PO DAILY [facility] Last Admin: 12/18/17 10:20 Dose: 1 tab Vancomycin HCl 1,250 mg/ (Sodium Chloride) 250 mls @ 166.6 mls/hr IVPB Q12H [facility] PRN Reason: Protocol Last Admin: 12/18/17 16:44 Dose: 166.6 mls/hr Lorazepam (Ativan) 2 mg PO BID [facility] Stop: 12/19/17 10:01 Last Admin: 12/18/17 17:46 Dose: 2 mg Nicotine (Nicoderm Cq) 1 patch TD DAILY [facility] Last Admin: 12/18/17 10:21 Dose: 1 patch Quetiapine Fumarate (Seroquel) 100 mg PO DAILY [facility] Last Admin: 12/18/17 10:20 Dose: 100 mg Quetiapine Fumarate (Seroquel) 300 mg PO HS [facility] Last Admin: 12/17/17 21:18 Dose: 300 mg - Labs Labs: 12/14/17 06:58 12/14/17 06:58
--- NOTE | 2017-12-18 20:48 | PN ---
Copied To: Geeta Adhikari MD Attending MD: Geeta Adhikari MD DATE: 12/18/2017 SUBJECTIVE: The patient is feeling better, but I saw the lesion. The wound still deep, but it is clean and it is improving. She did have a reaction to the tape and I asked the nurse, she says there was no paper tape on the floor. We put a Tegaderm dressing with a 4 x 4. I think she is allergic to those synthetic dressings and to the tape and she was almost getting contact dermatitis due to the dressing itself on the wound, but we took care of it and we will write down no tape or synthetic dressing on the wound. PHYSICAL EXAMINATION: VITAL SIGNS: T-max is 97 today, pulse 78, blood pressure is 102/69, respirations are 20. HEAD: Atraumatic, normocephalic. NECK: Supple. LUNGS: Clear. HEART: S1, S2 is regular. ABDOMEN: Soft, nontender. No guarding, no rigidity present. EXTREMITIES: Have no edema. Her right upper extremity wound is healing now. The wound culture had no growth and wound is coming on nicely. She wants to go to rehab. I think she is a candidate for rehab as we can just catch from here on, as she has spent some time in the hospital. Her last labs were unremarkable and she did get antibiotics from 12/13/2017 on, and I would give her doxycycline to go home on, as she is allergic to penicillin. If she goes tomorrow, then I will have to call the pharmacy, otherwise, 100 b.i.d. and give it for a week and that should be enough and patient is not infectious to anyway now and she is recuperating and doing well, but the wound is still healing and she came in with an abscess and cellulitis of the right upper arm as she is an IV drug abuser and she needs to go to rehab. Geeta Adihkari MD
[2017-12-19] MEDS: DiphenhydrAMINE 50 mg/ml Inj IVP PRN (05:50)
[2017-12-19 08:03] VITALS: BP 109/76; PULSE 70; TEMP 98.1; O2SAT 97
[2017-12-19] MEDS: ROPINIROLE 0.5 MG PO SCH (09:20)
--- NOTE | 2017-12-19 09:44 | CP.PCM.PN ---
Subjective - Date & Time of Evaluation Date of Evaluation: 12/19/17 Time of Evaluation: 09:41 - Subjective Subjective: seen and examined feels beter will d/c home today last dose of methadone tapered yesterday Objective - Vital Signs/Intake and Output Vital Signs (last 24 hours): Temp Pulse Resp BP Pulse Ox 98.1 F 70 20 109/76 97 12/19/17 08:00 12/19/17 08:00 12/19/17 08:00 12/19/17 08:00 12/19/17 08:00 Intake and Output: 12/19/17 12/19/17 06:59 18:59 Intake Total 1190 Balance 1190 - Medications Medications: Current Medications Clonidine HCl (Catapres) 0.1 mg PO BID [facility] Last Admin: 12/19/17 09:19 Dose: 0.1 mg Dicyclomine HCl (Bentyl) 10 mg PO Q6H PRN PRN Reason: gastric cramp Last Admin: 12/17/17 18:05 Dose: 10 mg Diphenhydramine HCl (Benadryl) 25 mg IVP BID PRN PRN Reason: Anxiety Last Admin: 12/19/17 05:50 Dose: 25 mg Gabapentin (Neurontin) 400 mg PO TID [facility] Last Admin: 12/19/17 09:19 Dose: 400 mg Home Med (Patient's Own Medication) 1 tab PO DAILY [facility] Last Admin: 12/19/17 09:20 Dose: Not Given Vancomycin HCl 1,250 mg/ (Sodium Chloride) 250 mls @ 166.6 mls/hr IVPB Q12H [facility] PRN Reason: Protocol Last Admin: 12/19/17 04:19 Dose: 166.6 mls/hr Lorazepam (Ativan) 2 mg PO BID [facility] Stop: 12/19/17 10:01 Last Admin: 12/19/17 09:19 Dose: 2 mg Nicotine (Nicoderm Cq) 1 patch TD DAILY [facility] Last Admin: 12/19/17 09:20 Dose: Not Given Quetiapine Fumarate (Seroquel) 100 mg PO DAILY [facility] Last Admin: 12/19/17 09:19 Dose: 100 mg Quetiapine Fumarate (Seroquel) 300 mg PO HS [facility] Last Admin: 12/18/17 21:01 Dose: 300 mg - Labs Labs: 12/14/17 06:58 12/14/17 06:58 - Constitutional Appears: Non-toxic - Head Exam Head Exam: NORMAL INSPECTION - Eye Exam Eye Exam: Normal appearance Pupil Exam: NORMAL ACCOMODATION - ENT Exam ENT Exam: Normal Exam - Neck Exam Neck Exam: Full ROM - Respiratory Exam Respiratory Exam: NORMAL BREATHING PATTERN - Cardiovascular Exam Cardiovascular Exam: REGULAR RHYTHM - Rectal Exam Rectal Exam: NORMAL INSPECTION - Exam Exam: NORMAL INSPECTION External exam: NORMAL EXTERNAL EXAM Speculum exam: NORMAL SPECULUM EXAM - Back Exam Back Exam: NORMAL INSPECTION - Neurological Exam Neurological Exam: Normal Gait - Psychiatric Exam Psychiatric exam: Normal Mood - Skin Skin Exam: Normal Color Assessment and Plan - Assessment and Plan (Free Text) Assessment: s/p abcess r arm s/p heroin abuse detox Plan: discharge home
== END 2017-12-19 09:57 | disposition home or self-care (01) | DRG 277 ==
LOC: C.ER 09:07 → C.9E 12:41 → C.3T 13:10
PROVIDERS: ADMIT Internal Medicine; ATTEND Internal Medicine
PROC: 0R9 Upper Joints, Drainage (ICD-10-PCS; principal; 2017-12-13)
PROC: HZ2ZZZZ Detoxification Services for Substance Abuse Treatment (ICD-10-PCS; 2017-12-13)
PROC: HZ52ZZZ Individual Psychotherapy for Substance Abuse Treatment, Cognitive-Behavioral (ICD-10-PCS; 2017-12-13)
PROC: HZ59ZZZ Individual Psychotherapy for Substance Abuse Treatment, Supportive (ICD-10-PCS; 2017-12-13)
PROC: HZ56ZZZ Individual Psychotherapy for Substance Abuse Treatment, Psychoeducation (ICD-10-PCS; 2017-12-13)
PROC: HZ42ZZZ Group Counseling for Substance Abuse Treatment, Cognitive-Behavioral (ICD-10-PCS; 2017-12-13)
PROC: HZ46ZZZ Group Counseling for Substance Abuse Treatment, Psychoeducation (ICD-10-PCS; 2017-12-13)
PROC: GZHZZZZ Group Psychotherapy (ICD-10-PCS; 2017-12-13)
PROC: GZ58ZZZ Individual Psychotherapy, Cognitive-Behavioral (ICD-10-PCS; 2017-12-13)
PROC: GZ56ZZZ Individual Psychotherapy, Supportive (ICD-10-PCS; 2017-12-13)
DX: L02.413 Cutaneous abscess of right upper limb (principal); F11.23 Opioid dependence with withdrawal; B19.20 Unspecified viral hepatitis C without hepatic coma; F13.230 Sedative, hypnotic or anxiolytic dependence with withdrawal, uncomplicated; L03.113 Cellulitis of right upper limb; F31.30 Bipolar disorder, current episode depressed, mild or moderate severity, unspecified; F17.210 Nicotine dependence, cigarettes, uncomplicated; G25.81 Restless legs syndrome; F41.9 Anxiety disorder, unspecified; G47.00 Insomnia, unspecified; J45.909 Unspecified asthma, uncomplicated; L25.9 Unspecified contact dermatitis, unspecified cause; F60.9 Personality disorder, unspecified